=== PATIENT | female | born 1960 | race Caucasian/White ===

== ENCOUNTER 2024-07-19 17:33 | Emergency (ER) | payer MEDICAID, OTHER ==
[~2024-07-19] VITALS: Ht 149.9 cm; Wt 49.3 kg
--- NOTE | 2024-07-19 19:37 | DVH ---
Exam: CT CT AB PEL WO CON-NO ORAL OR IV History: constipation, flank pain Comparison Study: None TECHNIQUE: Multidetector CT of the abdomen and pelvis was performed from lung bases to pubic symphysi s. Imaging was performed without IV contrast. Axial, coronal, and sagittal multiplanar reformats were obtained from the axial data set by the technologist. RADIATION DOSE: DLP 288.15 mGy.cm; CTDI vol 5.72 mGy. Findings: Lungs: The lung bases are clear. Heart: The visualized heart is unremarkable. No cardiomegaly or pericardial effusion. Liver: Unremarkable. Gallbladder: Unremarkable. Spleen: Unremarkable Pancreas: Unremarkable Adrenals: Unremarkable Kidneys: Unremarkable GI tract: Unremarkable. Moderate fecal burden. : Unremarkable. Vasculature: Mild aortoiliac atherosclerosis. Lymphadenopathy: Absent Peritoneum: No ascites Musculoskeletal: Mild multilevel degenerative changes of the thoracolumbar spine. Soft tissues: Unremarkable Impression: 1. No acute abdominopelvic abnormalities. 2. Moderate fecal burden.
[2024-07-19 19:46] LABS: Basophils # (auto) 0.1 10 ^3/uL (0-0.2); Basophils % (auto) 0.7 % (0.0-2.0); Eosinophils # (auto) 0.2 10 ^3/uL (0-0.8); Eosinophils % (auto) 1.6 % (0.0-7.0); Hematocrit 45.3 % (36.0-46.0); Hemoglobin 15.2 g/dL (12.2-16.2); Lymphocytes # (auto) 3.4 10 ^3/uL (0.4-5.4); Lymphocytes % (auto) 36.6 % (10.0-50.0); Mean Corpuscular Hemoglobin 28.3 pg (28.0-32.0); Mean Corpuscular Hgb Conc. 33.6 g/dL (32.0-36.0); Monocytes # (auto) 0.6 10 ^3/uL (0-1.3); Monocytes % (auto) 6.3 % (0.0-12.0); Neutrophils # (auto) 5.1 10 ^3/uL (1.6-8.6); Neutrophils % (auto) 54.8 % (37.0-80.0); Nucleated Red Blood Cells % 0.1 %; Platelet Count (auto) 272 10^3/uL (140-450); Red Blood Cells 5.39 10^6/uL (4.0-5.20); Red Cell Distribution Width 13.7 % (11.8-14.3); White Blood Cell 9.3 10^3/uL (4.4-10.8)
[2024-07-19 20:10] LABS: Lactic Acid w/Reflex 2.5 mmol/L (0.4-2.0)
--- NOTE | 2024-07-19 20:10 | ED.PDOC ---
GI ASSESSMENT HPI Comments HPI: Poor Historian. 63-year-old female presents to emergency department for evaluation of left lower quadrant pain that started two weeks ago constant worse with laying down better with ambulation. Denies any fall or trauma or injury. Patient has been having constipation problems. Last bowel movement was very minimal yesterday. Last bowel movement prior to that was two days prior. Initial Vital Signs: Temp :97.9 BP:152/91 HR:94 RR:20 SpO2: 98 Past Medical History: THYROID, HTN, DM Past Surgical History: CESARIAN, RIGHT OVARY REMOVAL Social History: Denies smoking, ETOH, or drug use. Medications: THYROID MEDICATION , HTN MEDICATION , DM MEDICATION Allergies: NKDA REVIEW OF SYSTEMS: CONSTITUTIONAL: Denies acute: fever, diaphoresis, chills, generalized weakness. HEAD: Denies acute: headache, photophobia Eyes: Denies acute: Double vision, vision loss, eye pain, eye discharge. EARS: Denies acute: tinnitus, hearing loss, ear discharge, ear pain, THROAT: Denies acute: sore throat, swelling, difficulty swallowing , pain with swallowing, change in voice. NECK: Denies acute: neck pain, neck swelling, stiff neck. HEART: Denies acute : chest pain, palpitations, LUNGS: Denies acute: SOB, wheezing, cough, hemoptysis ABDOMEN: Denies acute: Nausea, Vomiting, diarrhea, melena , hematemesis, hematochezia SKIN: Denies acute: rash, redness, lesions, itchiness. EXTREMITIES: Denies acute: calf pain, numbness, tingling, weakness, denies pain in extremity. Denies acute: Low back pain. Neuro: Denies acute: focal neurological deficit, motor or sensory focal neurological deficit, tremors, seizure like activity, confusion, dizziness, change in mental status, loss of bowel or bladder function, cauda equina like symptoms. : Denies acute: dysuria, hematuria, flank pain, increase in urinary frequency. PSYCH: Denies acute: hallucination, suicidal ideation, homicidal ideation. FEMALE: Denies acute: abnormal vaginal bleeding, foul odor, unusual discharge. PHYSICAL EXAM: General: no acute distress, awake and alert. Head: normocephalic, atraumatic. Neck: supple, trachea is midline, no swelling. Throat: Normal phonation. Eyes:, no erythema, no purulent discharge, no proptosis, no icterus. Heart: regular rate, regular rhythm, no significant murmur appreciated. Lungs: no apparent respiratory distress, Able to speak in full sentences. No wheezing, no rhonchi, no crackles. No stridors Clear to auscultation bilaterally. Abdomen: Left lower quadrant tender to palpation, non distended, soft, no guarding, no rebound, + bowel sounds. Neuro: Awake, Alert, oriented to name, self, situation, follows commands GCS=15. Speech is normal. Skin: no petechia, no purpura, no cyanosis, non-pale, not jaundice. Lower extremities: --no - Pitting edema no deformity, no focal swelling, no calf TTP. Makes eye contact. moves all four extremities. Face: no apparent facial droop. No CVA tenderness to percussion bilaterally. Ambulating in the ED independently. Chief Complaint: Constipation Time Seen by MD: 20:00 Reviewed Notes: Nurses Notes, Medications, Allergies Information Source: Patient Mode of Arrival: Ambulatory Timing: Weeks Duration: Since onset Prehospital treatment: None Quality: None Vomitus: None Severity: Mild Recent: None Recent Hx of: None Pain Location: LLQ Modifying Factors: Movement (IMPROVES SYMPTOMS ), Lying still (WORSENS SYMPTOMS) Associated sign and symptoms: Constipation Was a procedure done? Was a procedure done?: No GI differential Dx Differential Diagnosis: Bowel Obstruction, Constipation, Gastroenteritis, Electrolyte Imbalance, Food Poisoning X-Ray, Labs, Meds, VS Vital Signs Date Time Temp Pulse Resp B/P (MAP) Pulse Ox O2 Delivery O2 Flow Rate FiO2 07/19/24 22:36 98.1 95 18 162/102 (122) 95 98.1 07/19/24 18:24 97.9 94 20 152/91 (111) 98 Lab Test 07/19/24 22:57 07/19/24 21:30 07/19/24 19:33 Range/Units Urine Color Yellow Yellow Urine Clarity Turbid H Clear Urine pH 5.5 5.0-9.0 Urine Specific [place] 1.020 1.001-1.035 Urine Protein 2+ H Negative Urine Ketones Trace Negative Urine Blood Negative Negative /uL Urine Nitrite Negative Negative Urine Bilirubin Negative Negative Urine Urobilinogen Normal Negative mg/dL Urine Leukocyte Esterase 1+ Negative /uL Urine RBC 4 0 - 4 /hpf Urine WBC 23 0 - 5 /hpf Urine Squamous Epithelial Cells Few <5 /hpf Urine Bacteria None seen None Seen /hpf Urine Hyaline Casts Many 0 - 2 /lpf Urine Mucus Few None Seen Urine Glucose 1+ H Normal mg/dL Lactic Acid Level 1.7 2.5 *H 0.4-2.0 mmol/L White Blood Count 9.3 4.4-10.8 10^3/uL Red Blood Count 5.39 H 4.0-5.20 10^6/uL Hemoglobin 15.2 12.2-16.2 g/dL Hematocrit 45.3 36.0-46.0 % Mean Corpuscular Volume 84.0 80.0-100.0 fL Mean Corpuscular Hemoglobin 28.3 28.0-32.0 pg Mean Corpuscular Hemoglobin Concent 33.6 32.0-36.0 g/dL Red Cell Distribution Width 13.7 11.8-14.3 % Platelet Count 272 140-450 10^3/uL Mean Platelet Volume 8.3 6.9-10.8 fL Neutrophils (%) (Auto) 54.8 37.0-80.0 % Lymphocytes (%) (Auto) 36.6 10.0-50.0 % Monocytes (%) (Auto) 6.3 0.0-12.0 % Eosinophils (%) (Auto) 1.6 0.0-7.0 % Basophils (%) (Auto) 0.7 0.0-2.0 % Neutrophils # (Auto) 5.1 1.6-8.6 10 ^3/uL Lymphocytes # (Auto) 3.4 0.4-5.4 10 ^3/uL Monocytes # (Auto) 0.6 0-1.3 10 ^3/uL Eosinophils # (Auto) 0.2 0-0.8 10 ^3/uL Basophils # (Auto) 0.1 0-0.2 10 ^3/uL Nucleated Red Blood Cells 0.1 % Sodium Level 135 L 136-145 mmol/L Potassium Level 4.1 3.5-5.1 mmol/L Chloride Level 101 98-107 mmol/L Carbon Dioxide Level 24 20-31 mmol/L Anion Gap 10 5-15 Blood Urea Nitrogen 17 9-23 mg/dL Creatinine 0.83 0.550-1.02 mg/dL Glomerular Filtration Rate Calc 79 >90 mL/min BUN/Creatinine Ratio 20.5 H 10.0-20.0 Serum Glucose 174 H 74-106 mg/dL Calcium Level 10.9 H 8.7-10.4 mg/dL Total Bilirubin 0.3 0.2-1.0 mg/dL Aspartate Amino Transferase (AST) 33 13-40 U/L Alanine Aminotransferase (ALT) 43 H 7-40 U/L Alkaline Phosphatase 138 H 46-116 U/L Troponin I High Sensitivity 6 </=34 ng/L Total Protein 7.4 5.7-8.2 g/dL Albumin 4.5 3.2-4.8 g/dL Lipase 31 12-53 U/L Current Medications Medications (Trade) Dose Ordered Sig/[place] Route Start Time Stop Time Status Last Admin Sodium Chloride 1,000 ml @ 1,000 mls/hr Q1H ONCE IV 07/19/24 20:15 07/19/24 21:14 DC 07/19/24 22:49 Polyethylene Glycol/ Electrolytes (Golytely) 1 kit ONCE ONCE PO 07/19/24 20:15 07/19/24 20:16 DC 07/19/24 23:08 Ondansetron HCl (Zofran) 8 mg ONCE ONCE IV 07/19/24 22:30 07/19/24 22:31 DC 07/19/24 22:49 [place] [id number] Ph: [phone] DIAGNOSTIC IMAGING Diagnostic Imaging Report : [id number] Signed PATIENT: CIERRA AMAYA ACCT: [id number] UNIT: [id number] : 1960 LOC: ER ROOM / BED: / AGE / SEX: 63 / F ADM STATUS: REG ER SERVICE [id number] ORDERING PHYSICIAN: RENEA MCCAIN DO PROCEDURE(s): ABPL - CT AB PEL WO CON-NO ORAL OR IV REASON: constipation, flank pain ORDER NUMBER(s): [id number], ACCESSION NUMBER(s): [id number] Exam: CT CT AB PEL WO CON-NO ORAL OR IV History: constipation, flank pain Comparison Study: None TECHNIQUE: Multidetector CT of the abdomen and pelvis was performed from lung bases to pubic symphysis. Imaging was performed without IV contrast. Axial, coronal, and sagittal multiplanar reformats were obtained from the axial data set by the technologist. RADIATION DOSE: DLP 288.15 mGy.cm; CTDI vol 5.72 mGy. Findings: Lungs: The lung bases are clear. Heart: The visualized heart is unremarkable. No cardiomegaly or pericardial effusion. Liver: Unremarkable. Gallbladder: Unremarkable. Spleen: Unremarkable Pancreas: Unremarkable Adrenals: Unremarkable Kidneys: Unremarkable GI tract: Unremarkable. Moderate fecal burden. : Unremarkable. Vasculature: Mild aortoiliac atherosclerosis. Lymphadenopathy: Absent Peritoneum: No ascites Musculoskeletal: Mild multilevel degenerative changes of the thoracolumbar spine. Soft tissues: Unremarkable Impression: 1. No acute abdominopelvic abnormalities. 2. Moderate fecal burden. ATED BY: VERONICA CHERRY DO DICTATED DATE/TIME: 07/19/241933 SIGNED BY: VERONICA CHERRY DO SIGNED DATE/TIME: 07/19/241933 CC: Time of 1ST Reevaluation: 20:30 Reevaluation 1ST: Unchanged Comments Patient presented with 63-year-old female presents to emergency department for evaluation of left lower quadrant pain that started two weeks ago constant worse with laying down better with ambulation.workup was initiated. patient was found with the above mentioned diagnosis. the following medications were ordered: PEG 3350, NS 1L the following tests were ordered: EKG, CT ABD PEL Patient ED course and VS have been stabilized. Patient has been reassessed in the ED and remained in a stable condition. Pertinent incidental findings were discussed with the patient and/or family. Patient/family voices understanding and is agreeable with plan. Patient has been observed in the ED adequate length of time to insure improvement/stability. Escalation of care considered: Consideration of escalation to observation or admission Patient was DISCHARGED home in a stable condition. All the reports of any imaging studies that were ordered by myself were reviewed by myself. Departure 1 Departure Time of Disposition: 21:21 Impression: Primary Impression: Constipation Additional Impressions: Abdominal pain UTI (urinary tract infection) Disposition: HOME / SELF CARE / HOMELESS Condition: Stable Additional Instructions: Additional discharge instructions: You MUST follow-up with your primary care/family doctor in 1 to 2 days. If you are unable to see your primary care/family doctor, please return to our emergency room for re-assessment and re-evaluation in 1 to 2 days. Return to the emergency room here in our facility or to the nearest ER [facility] if your symptoms change or worsen. CONSULTATIONS: you MUST Follow-up for consultation as soon as possible with: -gastroenterology in 1-2 days. Please call for appointment. Follow up with OB Gyne doctor in 1-2 days. Please call for appointment. You MUST call the consultants office yourself to make an appointment. You may need to arrange that through your insurance and/or your primary/family doctor. If you are unable to see the edi consultant in 1 to 2 days, you must return to our emergency room (or any other ER of your choice) for re-assessment and re-evaluat ion. Adequate fluid hydration. Liquid diet only in the next 72 hours. Finish the GoLYTELY bottle as instructed in the next 24 hours. Increase fiber intake. Below is a copy of your radiological report for follow up: [place] [address] Ph: [phone] DIAGNOSTIC IMAGING Diagnostic Imaging Report : [id number] Signed PATIENT: CIERRA AMAYA ACCT: [id number] UNIT: [id number] : 1960 LOC: ER ROOM / BED: / AGE / SEX: 63 / F ADM STATUS: REG ER SERVICE [id number] ORDERING PHYSICIAN: RENEA MCCAIN DO PROCEDURE(s): ABPL - CT AB PEL WO CON-NO ORAL OR IV REASON: constipation, flank pain ORDER NUMBER(s): [id number], ACCESSION NUMBER(s): [id number] Exam: CT CT AB PEL WO CON-NO ORAL OR IV History: constipation, flank pain Comparison Study: None TECHNIQUE: Multidetector CT of the abdomen and pelvis was performed from lung bases to pubic symphysis. Imaging was performed without IV contrast. Axial, coronal, and sagittal multiplanar reformats were obtained from the axial data set by the technologist. RADIATION DOSE: DLP 288.15 mGy.cm; CTDI vol 5.72 mGy. Findings: Lungs: The lung bases are clear. Heart: The visualized heart is unremarkable. No cardiomegaly or pericardial e ffusion. Liver: Unremarkable. Gallbladder: Unremarkable. Spleen: Unremarkable Pancreas: Unremarkable Adrenals: Unremarkable Kidneys: Unremarkable GI tract: Unremarkable. Moderate fecal burden. : Unremarkable. Vasculature: Mild aortoiliac atherosclerosis. Lymphadenopathy: Absent Peritoneum: No ascites Musculoskeletal: Mild multilevel degenerative changes of the thoracolumbar spine. Soft tissues: Unremarkable Impression: 1. No acute abdominopelvic abnormalities. 2. Moderate fecal burden. ATED BY: VERONICA CHERRY DO DICTATED DATE/TIME: 07/19/241933 SIGNED BY: VERONICA CHERRY DO SIGNED DATE/TIME: 07/19/241933 CC: e-Prescriptions Ondansetron Odt 4MG Tab (ZOFRAN PO) 4 Mg Tb 4 MG PO Q8HPRN PRN for 3 Days, #9 TAB ODT TAB-DISSOLVE IN MOUTH, THEN SWALLOW Prov: RENEA MCCAIN DO 07/19/24 Nitrofurantoin Monohydrate Mac (Macrobid) 100 Mg Cap 100 MG PO BID for 7 Days, #14 CAP Prov: RENEA MCCAIN DO 07/19/24 Discharged With: Self Critical Care Note Critical Care Time?: No Stability Stability form required: No I personally scribed for RENEA MCCAIN DO ([email or web address]) on 07/19/24 at 20:10. Electronically submitted by Trupti Guerrero ([email or web address]). I personally scribed for RENEA MCCAIN DO ([email or web address]) on 07/19/24 at 20:12. Electronically submitted by Trupti Guerrero ([email or web address]). I personally scribed for RENEA MCCAIN DO ([email or web address]) on 07/19/24 at 20:17. Electronically submitted by Trupti Guerrero ([email or web address]). I personally scribed for RENEA MCCAIN DO ([email or web address]) on 07/19/24 at 20:18. Electronically submitted by Trupti Guerrero ([email or web address]). I personally scribed for RENEA MCCAIN DO ([email or web address]) on 07/19/24 at 20:46. Electronically submitted by Trupti Guerrero ([email or web address]). I personally scribed for RENEA MCCAIN DO ([email or web address]) on 07/19/24 at 21:54. Electronically submitted by Trupti Guerrero ([email or web address]). RENEA MCCAIN DO Jul 19, 2024 20:10
[2024-07-19 20:14] LABS: Carbon Dioxide 24 mmol/L (20-31); Chloride 101 mmol/L (98-107); Potassium 4.1 mmol/L (3.5-5.1)
[2024-07-19 20:15] LABS: Albumin 4.5 g/dL (3.2-4.8); Anion Gap 10 (5-15); Aspartate Aminotransferase 33 U/L (13-40); BUN/Creatinine Ratio 20.5 (10.0-20.0); Blood Urea Nitrogen 17 mg/dL (9-23); Lipase 31 U/L (12-53); Total Protein 7.4 g/dL (5.7-8.2)
[2024-07-19 20:16] LABS: Alanine Aminotransferase 43 U/L (7-40); Alkaline Phosphatase 138 U/L (46-116); Bilirubin, Total 0.3 mg/dL (0.2-1.0); Calcium 10.9 mg/dL (8.7-10.4); Glucose 174 mg/dL (74-106); Sodium 135 mmol/L (136-145)
[2024-07-19 22:36] VITALS: BP 162/102; PULSE 95; RESP 18; TEMP 98.1; O2SAT 95
[2024-07-19] MEDS: SODIUM CHLORIDE 0.9% 1,000 ML IV ONE (22:49)
[2024-07-19] MEDS: ONDANSETRON HCL 4 MG/2 ML VIAL IV ONE (22:49)
[2024-07-19] MEDS: GOLYTELY 4L KIT PO ONE (23:08)
[2024-07-19 23:09] LABS: Urine Bacteria None Seen /hpf (None Seen)
[2024-07-19 23:22] LABS: Urine Blood Negative /uL (Negative); Urine Clarity Turbid (Clear); Urine Color Yellow (Yellow); Urine Hyaline Cast MANY /lpf (0 - 2); Urine Mucus FEW (None Seen); Urine Protein, UAD 2+ (Negative); Urine Squamous Epithelial Cell FEW /hpf (<5); Urine Urobilinogen Normal (Negative); Urine WBC 23 /hpf (0 - 5); Urine pH 5.5 (5.0-9.0)
[2024-07-19] MEDS ORDERED: ZOFR4T PO (23:28)
[2024-07-19] MEDS ORDERED: NITR-87 PO (23:28)
== END 2024-07-19 23:59 | disposition home or self-care (01) ==
LOC: ER 17:33
DX: K59.00 Constipation, unspecified (principal); N39.0 Urinary tract infection, site not specified; R10.32 Left lower quadrant pain; I10 Essential (primary) hypertension; E11.9 Type 2 diabetes mellitus without complications; Z90.721 Acquired absence of ovaries, unilateral; Z79.899 Other long term (current) drug therapy
CPT/HCPCS: 36415; 74176; 80053; 81001; 83605; 83690; 84484; 85025; 96361; 96374; 99285; J2405; J7030

== ENCOUNTER 2024-11-02 09:55 | Inpatient (IN) | payer MEDICAID ==
[~2024-11-02] VITALS: Ht 149.9 cm; Wt 52.4 kg
[~2024-11-02 09:55] MED LIST: NITR-87 PO; ZOFR4T PO
--- NOTE | 2024-11-02 10:28 | ECG ---
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
--- NOTE | 2024-11-02 10:32 | ED.PDOC ---
HPI Comments 64 year old female presents to the ED with chief complaint of back pain radiating to her chest. Patient reports that she has been experiencing thoracic back pain with associated left sided pressure-like chest pain, LLQ abdominal pain, SOB, and bilateral hand numbness for the past 5 days. Patient relays that the pain in her back is worse when pushed on. Patient notes she had a previous left arm thrombectomy performed in [place] in March 2024. Patient denies any weakness, headache, dizziness, N/V, syncope, blurred vision, or left arm pain. Chief Complaint: Chest Pain Time Seen by MD: 10:27 Reviewed Notes: Nurses Notes, Medications, Allergies Allergies: Coded Allergies: NO KNOWN ALLERGIES (Unverified , 11/02/24) Home Meds Active Scripts Ondansetron Odt 4MG Tab (ZOFRAN PO) 4 Mg Tb, 4 MG PO Q8HPRN PRN for 3 Days, #9 TAB ODT TAB-DISSOLVE IN MOUTH, THEN SWALLOW Prov:RENEA MCCAIN DO 07/19/24 Nitrofurantoin Monohydrate Mac (Macrobid) 100 Mg Cap, 100 MG PO BID for 7 Days, #14 CAP Prov:RENEA MCCAIN DO 07/19/24 Information Source: Patient Mode of Arrival: Wheelchair Severity: Moderate Timing: Hours Duration: Since onset Prehospital treatment: None Location: Chest (L) Radiation: Back Quality: Sharp Onset: At Rest Cardiac Risk Factors: Hyperlipidemia, HTN PE Risk Factors: None History of: None Past Medical History PAST MEDICAL HISTORY: High Lipids, HTN, Thyroid Surgical History (Other): Left arm thrombectomy [employer] History: Denies all [employer] Hx Family History Family History: Reviewed,noncontributory to illness Social History Smoker: Non-Smoker Alcohol: Denies ETOH Use Drugs: Denies Drug Use Lives In: Home Constitutional: denies: chills, diaphoresis, fatigue, fever, malaise, sweats, weakness, others EENTM: denies: blurred vision, double vision, ear bleeding, ear discharge, ear drainage, ear pain, ear ringing, eye pain, eye redness, hearing loss, mouth pain, mouth swelling, nasal discharge, nose bleeding, nose congestion, nose pain, photophobia, tearing, throat pain, throat swelling, voice changes, others Respiratory: reports: shortness of breath; denies: cough, hemoptysis, orthopnea, SOB at rest, SOB with excertion, stridor, wheezing, others Cardiovascular: reports: chest pain; denies: dizzy spells, diaphoresis, Dyspnea on exertion, edema, irregular heart beat, left arm pain, lightheadedness, palpitations, PND, syncope, others Gastrointestinal: reports: abdominal pain; denies: abdomen distended, blood streaked bowels, constipated, diarrhea, dysphagia, difficulty swallowing, hematemesis, melena, nausea, poor appetite, poor fluid intake, rectal bleeding, rectal pain, vomiting, others Genitourinary: denies: abnormal vagina bleeding, burning, dyspareunia, dysuria, flank pain, frequency, hematuria, incontinence, pain, , vagina discharge, urgency, others Neurological: reports: others (Bilateral hand numbness); denies: dizziness, fainting, headache, left sided numbness, left sided weakness, numbness, paresthesia, pre-existing deficit, right sided numbness, right sided weakness, seizure, speech problems, tingling, tremors, weakness Musculoskeletal: reports: back pain; denies: gout, joint pain, joint swelling, muscle pain, muscle stiffness, neck pain, others Integumetry: denies: bruises, change in color, change in hair/nails, dryness, laceration, lesions, lumps, rash, wounds, others Allergic/Immunocompromised: denies: Difficulty Healing, Frequent Infections, Hives, Itching, others Hematologic/Lymphatic: denies: anemia, blood clots, easy bleeding, easy bruising, swollen glands, others Endocrine: denies: excessive hunger, excessive sweating, excessive thirst, excessive urination, flushing, intolerance to cold, intolerance to heat, unexplained weight gain, unexplained weight loss, others Psychiatric: denies: anxiety, bipolar disorder, depression, hopeless, panic disorder, schizophrenia, sleepless, suicidal, others All Other Systems: Reviewed and Negative Physical Exam General Appearance: Mild Distress HEENT: Other (Pupils and face symmetric, moist mucous membranes) Neck: Full Range of Motion, Non-Tender, Normal Inspection, Supple Respiratory: Chest Non-Tender, Lungs Clear, No Accessory Muscle Use, Normal Breath Sounds, Other (Mild tachypnea) Cardiovascular: No Edema, No JVD, Tachycardia Breast Exam: Deferred Gastrointestinal: Non Tender, Soft Genitalia: Deferred Pelvic: Deferred Rectal: Deferred Extremities: Normal inspection, Normal range of motion, Non-tender, No pedal edema Musculoskeletal : Extremity Location: Back (Diffuse thoracic back tenderness to light palpation. No edema, discoloration or crepitus noted) Apperance: Normal Neurologic: Alert (Oriented x4), Other (Anxious. Ambulatory without difficulty.) Cerebellar Function: NOT DONE Reflexes: NOT DONE Skin: Dry, Normal Color, Warm Lymphatic: NOT DONE EKG EKG : Pulse Rate (adult): 89 Comments Sinus rhythm, rate 89, normal intervals, normal axis, normal QRS, no ST/T changes. Was a procedure done? Was a procedure done?: No CP Differential Dx Differential Diagnosis: Angina, Anxiety / Panic Attack, Heart Failure, NH, Pulmonary Embolus Differential Diagnosis: HTN Essential, HTN Accelerated Differential Diagnosis: Aortic dissection, Chest Wall Pain, Costochondritis, Gastritis, Pericarditis, Pneumonia Comment Musculoskeletal back pain, disc disease, neuropathic pain, among others X-Ray, Labs, Meds, VS Vital Signs Date Time Temp Pulse Resp B/P (MAP) Pulse Ox O2 Delivery O2 Flow Rate FiO2 11/02/24 11:23 86 22 144/80 11/02/24 11:00 87 20 100 Room Air* 0 21 11/02/24 10:53 87 20 100 Room Air 11/02/24 10:53 98.8 87 20 144/80 (101) 100 98.8 11/02/24 10:53 87 20 144/80 11/02/24 10:32 89 11/02/24 10:20 89 11/02/24 10:15 98.8 101 22 157/94 (115) 100 98.8 Lab Test 11/02/24 11:42 11/02/24 11:00 11/02/24 10:38 Range/Units Troponin I High Sensitivity 4 4 </=34 ng/L Urine Color Yellow Yellow Urine Clarity Clear Clear Urine pH 5.5 5.0-9.0 Urine Specific [place] 1.030 1.001-1.035 Urine Protein Trace H Negative Urine Ketones Trace Negative Urine Blood Negative Negative /uL Urine Nitrite Negative Negative Urine Bilirubin Negative Negative Urine Urobilinogen 2 H Negative mg/dL Urine Leukocyte Esterase 1+ Negative /uL Urine RBC 1 0 - 4 /hpf Urine Microscopic WBC 2 0-5 /HPF Urine Squamous Epithelial Cells Few <5 /hpf Urine Bacteria None seen None Seen /hpf Urine Mucus Few None Seen Urine Glucose 2+ H Normal mg/dL White Blood Count 7.6 4.4-10.8 10^3/uL Red Blood Count 4.67 4.0-5.20 10^6/uL Hemoglobin 14.0 12.2-16.2 g/dL Hematocrit 40.4 36.0-46.0 % Mean Corpuscular Volume 86.6 80.0-100.0 fL Mean Corpuscular Hemoglobin 30.1 28.0-32.0 pg Mean Corpuscular Hemoglobin Concent 34.7 32.0-36.0 g/dL Red Cell Distribution Width 13.5 11.8-14.3 % Platelet Count 304 140-450 10^3/uL Mean Platelet Volume 7.9 6.9-10.8 fL Neutrophils (%) (Auto) 56.4 37.0-80.0 % Lymphocytes (%) (Auto) 35.5 10.0-50.0 % Monocytes (%) (Auto) 6.4 0.0-12.0 % Eosinophils (%) (Auto) 0.7 0.0-7.0 % Basophils (%) (Auto) 1.0 0.0-2.0 % Neutrophils # (Auto) 4.3 1.6-8.6 10 ^3/uL Lymphocytes # (Auto) 2.7 0.4-5.4 10 ^3/uL Monocytes # (Auto) 0.5 0-1.3 10 ^3/uL Eosinophils # (Auto) 0.1 0-0.8 10 ^3/uL Basophils # (Auto) 0.1 0-0.2 10 ^3/uL Nucleated Red Blood Cells 0.0 % Prothrombin Time 10.6 9.3-11.8 sec Prothrombin Time INR 1.00 0.9-1.15 Activated Partial Thromboplast Time 24.0 L 24.5-34.5 SEC D-Dimer, Quantitative 0.38 0.0-0.49 mg/L FEU Sodium Level 134 L 136-145 mmol/L Potassium Level 3.8 3.5-5.1 mmol/L Chloride Level 101 98-107 mmol/L Carbon Dioxide Level 20 20-31 mmol/L Anion Gap 13 5-15 Blood Urea Nitrogen 16 9-23 mg/dL Creatinine 0.68 0.550-1.02 mg/dL Glomerular Filtration Rate Calc 97 >90 mL/min BUN/Creatinine Ratio 23.5 H 10.0-20.0 Serum Glucose 248 H 74-106 mg/dL Calcium Level 10.4 8.7-10.4 mg/dL Total Bilirubin 0.4 0.2-1.0 mg/dL Aspartate Amino Transferase (AST) 34 13-40 U/L Alanine Aminotransferase (ALT) 53 H 7-40 U/L Alkaline Phosphatase 120 H 46-116 U/L B-Type Natriuretic Peptide 38.19 0-100 pg/mL Total Protein 7.7 5.7-8.2 g/dL Albumin 4.7 3.2-4.8 g/dL Lipase 30 12-53 U/L Current Medications Medications (Trade) Dose Ordered Sig/[place] Route Start Time Stop Time Status Last Admin Morphine Sulfate 2 mg ONCE ONCE IV 11/02/24 10:30 11/02/24 10:31 DC 11/02/24 10:53 Ondansetron HCl (Zofran) 4 mg ONCE ONCE IV 11/02/24 10:30 11/02/24 10:31 DC 11/02/24 10:52 Lorazepam (Ativan Inj) 0.5 mg ONCE ONCE IV 11/02/24 10:30 11/02/24 10:31 DC 11/02/24 11:44 Aspirin 325 mg ONCE ONCE PO 11/02/24 14:15 11/02/24 14:42 DC 11/02/24 17:08 CT Angio Chest: FINDINGS: LIMITATIONS: Suboptimal opacification of the pulmonary arteries. PULMONARY ARTERIES: No pulmonary embolism is identified. Some of the distal pulmonary arteries cannot be evaluated due to suboptimal opacification. AORTA: No acute findings. No thoracic aortic aneurysm. LUNGS AND PLEURAL SPACES: Suggestion of pulmonary hypertension. No mass. No consolidation. No significant effusion. No pneumothorax. HEART: Unremarkable. No cardiomegaly. No significant pericardial effusion. No evidence of RV dysfunction. BONES/JOINTS: No acute fracture. No dislocation. SOFT TISSUES: Unremarkable. LYMPH NODES: Unremarkable. No enlarged lymph nodes. OTHER FINDINGS: . . IMPRESSION: No pulmonary embolism is identified. Some of the distal pulmonary arteries cannot be evaluated due to suboptimal opacification. X-Ray, Labs, Meds, VS Comment 64-year-old female with a history of hypertension, dyslipidemia, left upper extremity DVT status post thrombectomy and thyroid disease presenting complaining of chest pain, shortness of breath and thoracic back pain Vitals remarkable for heart rate 101, respiratory rate 22, BP 157/94 Exam remarkable for tachycardia, diffuse thoracic back tenderness Rhythm strip independently interpreted by me: Sinus rhythm, rate 89, no ectopy. CT angio chest: IMPRESSION: No pulmonary embolism is identified. Some of the distal pulmonary arteries cannot be evaluated due to suboptimal opacification. CBC normal, CMP remarkable for sodium 134, glucose 248, UA abnormal but not definitely consistent with UTI Patient treated with the following in the ED: Ativan 0.5 mg IV, morphine 2 mg IV, Zofran 4 mg IV. On re-evaluation. Patient is less anxious and states back pain has somewhat improved. She is still having chest pain. Aspirin 325 mg p.o. and Nitro-Bid 1/2 inch to chest wall were subsequently ordered. Plan is to admit the patient for ongoing serial troponins and Cardiology evaluation. Images Reviewed?: Images reviewed and evaluated by me Time of 1ST Reevaluation: 14:14 Reevaluation 1ST: Improved Patient Education/Counseling: Diagnosis, Treatment Family Education/Counseling: No Family Present Additional Information -Reviewed patient's previous visit(s): 07/19/24 for constipation - The following tests were ordered, and results were reviewed by me: CBC, CMP, D-Dimer, Lipase, PTPTT, UA, BNP, Troponin, EKG, CT Angio Chest - Additional information was gathered from interviewing the following independent Historian: None - I reviewed and agreed with the following test results read by other provider: CT Angio Chest - I discussed treatments and results with medical personnel and: patient Comprehensive systems review obtained and negative except for what is stated in the HPI. Departure 1 Departure Time of Disposition: 14:14 Impression: Primary Impression: Chest pain with high risk for cardiac etiology Additional Impression: Thoracic back pain Qualified Codes: M54.6 - Pain in thoracic spine Disposition: 09 ADMITTED INPATIENT Admit to: [facility] Condition: Guarded Critical Care Note Critical Care Time?: No Stability Stability form required: No Heart Score Heart Score: Heart Score Response (Comments) Value History Highly Suspicious 2 EKG Normal 0 Age 45-64 1 Risk Factors 1 or 2 risk factors 1 Troponin Normal limit 0 Total 4 I personally scribed for TOVA VALENCIA MD (PAVAN) on 11/02/24 at 10:32. Electronically submitted by Joao Magurie ([email or web address]). I personally scribed for TOVA VALENCIA MD (PAVAN) on 11/02/24 at 10:49. Electronically submitted by Joao Maguire ([email or web address]). I personally scribed for TOVA VALENCIA MD (PAVAN) on 11/02/24 at 13:16. Electronically submitted by Joao Maguire ([email or web address]). TOVA VALENCIA MD Nov 02, 2024 10:32
[2024-11-02] MEDS: ONDANSETRON HCL 4 MG/2 ML VIAL IV ONE (10:52)
[2024-11-02] MEDS: MORPHINE SULFATE INJ 2 MG/ml SYRG IV ONE (10:53)
[2024-11-02 10:59] LABS: Basophils # (auto) 0.1 10 ^3/uL (0-0.2); Eosinophils # (auto) 0.1 10 ^3/uL (0-0.8); Eosinophils % (auto) 0.7 % (0.0-7.0); Hematocrit 40.4 % (36.0-46.0); Lymphocytes # (auto) 2.7 10 ^3/uL (0.4-5.4); Lymphocytes % (auto) 35.5 % (10.0-50.0); Mean Corpuscular Hemoglobin 30.1 pg (28.0-32.0); Mean Corpuscular Hgb Conc. 34.7 g/dL (32.0-36.0); Mean Corpuscular Volume 86.6 fL (80.0-100.0); Monocytes # (auto) 0.5 10 ^3/uL (0-1.3); Monocytes % (auto) 6.4 % (0.0-12.0); Neutrophils # (auto) 4.3 10 ^3/uL (1.6-8.6); Neutrophils % (auto) 56.4 % (37.0-80.0); Platelet Count (auto) 304 10^3/uL (140-450); Red Blood Cells 4.67 10^6/uL (4.0-5.20); Red Cell Distribution Width 13.5 % (11.8-14.3); White Blood Cell 7.6 10^3/uL (4.4-10.8)
[2024-11-02 11:00] VITALS: PULSE 87; RESP 20; O2SAT 100
[2024-11-02 11:13] LABS: Albumin 4.7 g/dL (3.2-4.8); Anion Gap 13 (5-15); Aspartate Aminotransferase 34 U/L (13-40); BUN/Creatinine Ratio 23.5 (10.0-20.0); Bilirubin, Total 0.4 mg/dL (0.2-1.0); Blood Urea Nitrogen 16 mg/dL (9-23); Calcium 10.4 mg/dL (8.7-10.4); Chloride 101 mmol/L (98-107); Potassium 3.8 mmol/L (3.5-5.1); Prothrombin Time 10.6 sec (9.3-11.8); Total Protein 7.7 g/dL (5.7-8.2)
[2024-11-02 11:23] LABS: Alanine Aminotransferase 53 U/L (7-40); Alkaline Phosphatase 120 U/L (46-116); Carbon Dioxide 20 mmol/L (20-31); Glucose 248 mg/dL (74-106); Sodium 134 mmol/L (136-145)
[2024-11-02 11:36] LABS: Lipase 30 U/L (12-53)
[2024-11-02] MEDS: LORazepam 2MG/ML-1ML VIAL IV ONE (11:44)
[2024-11-02 11:45] LABS: Urine Bacteria None Seen /hpf (None Seen)
[2024-11-02 12:04] LABS: Urine Blood Negative /uL (Negative); Urine Clarity Clear (Clear); Urine Color Yellow (Yellow); Urine Mucus FEW (None Seen); Urine Protein, UAD TRACE (Negative); Urine Squamous Epithelial Cell FEW /hpf (<5); Urine Urobilinogen 2 mg/dL (Negative); Urine WBC 2 /HPF (0-5); Urine pH 5.5 (5.0-9.0)
[2024-11-02] MEDS: IOHEXOL 350 MG/ML 100ML IJ ONE (12:21)
--- NOTE | 2024-11-02 13:11 | DVH ---
EXAM: CT Angiography Chest With Intravenous Contrast CLINICAL INDICATION: back pain, CP, s/p LUE thrombectomy TECHNIQUE: Axial computed tomographic angiography images of the chest with intravenous contrast. is CT exam was performed using one or more of the following dose reduction techniques: automated exp osure control, adjustment of the mA and/or kV according to patient size, and/or use of iterative fox nstruction technique. MIP reconstructed images were created and reviewed. CONTRAST: COMPARISON: None FINDINGS: LIMITATIONS: Suboptimal opacification of the pulmonary arteries. PULMONARY ARTERIES: No pulmonary embolism is identified. Some of the distal pulmonary arteries can not be evaluated due to suboptimal opacification. AORTA: No acute findings. No thoracic aortic aneurysm. LUNGS AND PLEURAL SPACES: Suggestion of pulmonary hypertension. No mass. No consolidation. No si gnificant effusion. No pneumothorax. HEART: Unremarkable. No cardiomegaly. No significant pericardial effusion. No evidence of RV dys function. BONES/JOINTS: No acute fracture. No dislocation. SOFT TISSUES: Unremarkable. LYMPH NODES: Unremarkable. No enlarged lymph nodes. OTHER FINDINGS: . . IMPRESSION: No pulmonary embolism is identified. Some of the distal pulmonary arteries cannot be evaluated due to suboptimal opacification.
[2024-11-02] MEDS: NITROGLYCERIN 2% OINT 1GM PKG TD ONE (14:15)
--- NOTE | 2024-11-02 15:21 | DVHHP2 ---
Admitting Diagnosis: Admission Date: 11/02/2024 Chest pain History of Present Illness Patient is a 64-year-old female who presents to the emergency department with a CC of back pain that radiates to her chest. Patient has been reporting thoracic back pain with left-sided pressure like chest pain, shortness of breath, bilateral hand numbness for 5 days, and lower left quadrant abdominal pain. Patient states that pain in her back is worse when pushed on. Patient reports in March 2024 she had a left arm thrombectomy in [place]. Patient denies any other symptoms at this time. While in the emergency department the patient was evaluated by the provider, As per provider: Labs, vital signs, and imagining monitored. Patient will be admitted for further evaluation and treatment. I discussed admission with the patient/family and is in agreement to treatment plan. Allergies: Coded Allergies: NO KNOWN ALLERGIES (Unverified , 11/02/24) Home Meds Active Scripts Ondansetron Odt 4MG Tab (ZOFRAN PO) 4 Mg Tb, 4 MG PO Q8HPRN PRN for 3 Days, #9 TAB ODT TAB-DISSOLVE IN MOUTH, THEN SWALLOW Prov:RENEA MCCAIN DO 07/19/24 Nitrofurantoin Monohydrate Mac (Macrobid) 100 Mg Cap, 100 MG PO BID for 7 Days, #14 CAP Prov:RENEA MCCAIN DO 07/19/24 Reported Medications Metformin Hydrochloride (Glumetza) 1,000 Mg Tab 11/03/24 Aspirin (Aspirin Low Dose) 81 Mg Tab, 1 TAB PO DAILY 11/03/24 Atorvastatin Calcium (ATORVASTATIN CALCIUM) 40 Mg Tab, 1 TAB PO DAILY 11/03/24 Benazepril Hcl (Benazepril Hcl) 10 Mg Tab, 1 TAB PO DAILY 11/03/24 Amlodipine Besylate (Amlodipine Besylate) 10 Mg Tab, 1 TAB PO DAILY 11/03/24 Levothyroxine Sodium (Levothyroxine Sodium) 200 Mcg Tab, 1 TAB PO DAILY 11/03/24 Current Medications Current Medications Medications (Trade) Dose Ordered Sig/[place] Route PRN Reason Start Time Stop Time Status Last Admin Ondansetron HCl (Zofran) 4 mg Q4HP PRN IV NAUSEA / VOMITING 11/02/24 15:30 11/03/24 08:35 DC 11/02/24 21:01 Docusate Sodium (Colace Capsule) 100 mg BIDPRN PRN PO FOR CONSTIPATION 11/02/24 15:30 Enoxaparin Sodium (Lovenox) 40 mg DAILY SC 11/03/24 10:00 11/03/24 09:16 Nitroglycerin (Ntrostat Sublingual) 0.4 mg Q5MIN PRN SL FOR CHEST PAIN 11/02/24 15:30 11/02/24 17:10 Nitroglycerin (Ntrostat Sublingual) 0.4 mg Q5MINP PRN SL FOR CHEST PAIN 11/02/24 15:30 11/02/24 15:30 DC Morphine Sulfate 2 mg Q30M PRN IV FOR CHEST PAIN 11/02/24 15:30 Diagnostic Test (Pha) (Accu-Chek Comfort Curve T) 1 strip Q6HR 11/02/24 18:00 11/03/24 12:46 Insulin Human Regular (InsuLIN R) Q6HR SC 11/02/24 18:00 11/03/24 12:46 Dextrose 50 ml UD PRN IV Blood Sugar LESS THAN 60 11/02/24 15:30 Hydralazine HCl (Apresoline Injection) 10 mg Q6HP PRN IV SBP>150 11/02/24 21:15 Diphenhydramine HCl (Benadryl Capsule) 25 mg Q6HP PRN PO FOR ITCHING 11/02/24 21:30 11/03/24 03:51 Amlodipine Besylate (Norvasc Tablet) 10 mg DAILY PO 11/03/24 10:00 11/03/24 09:38 Benazepril HCl (Lotensin Tablet) 10 mg DAILY PO 11/03/24 10:00 11/03/24 06:35 DC Metoprolol Tartrate (Lopressor Tablet) 25 mg BID PO 11/03/24 10:00 11/03/24 09:37 Atorvastatin Calcium (Lipitor) 40 mg HS PO 11/03/24 22:00 Aspirin (Ecotrin Enteric Coated Tablet) 81 mg DAILY PO 11/03/24 10:00 11/03/24 09:36 Benazepril HCl (Lotensin Tablet) 10 mg DAILY PO 11/03/24 10:00 11/03/24 09:37 Patient Own Medication 1 tab DAILY PO 11/03/24 10:00 11/03/24 06:48 DC Patient Own Medication 1 tab DAILY PO 11/03/24 10:00 11/03/24 06:48 DC Levothyroxine Sodium (Synthroid Tablet) 200 mcg DAILY@0730 PO 11/03/24 07:30 11/03/24 07:57 DC Levothyroxine Sodium (Synthroid Tablet) 150 mcg DAILY@0730 PO 11/03/24 08:00 11/03/24 13:40 Ondansetron HCl (Zofran) 4 mg Q4HPRN PRN IV NAUSEA / VOMITING 11/03/24 08:00 Morphine Sulfate 2 mg Q4HPRN PRN IV SEVERE PAIN (7-10 PAIN SCALE) 11/03/24 08:15 Acetaminophen/ Hydrocodone Bitart ([place] 5/325MG Tab) 1 tab Q6HPRN PRN PO MODERATE PAIN (4-6 PAIN SCALE) 11/03/24 08:15 Review of Systems Constitutional: denies chills, denies fever, denies malaise Eyes: denies eye pain, denies vision change ENT: denies ear pain, denies headache, denies nasal congestion, denies painful swallowing, denies voice change Cardiovascular: denies chest pain, denies edema, denies orthopnea, denies palpitations, denies paroxysmal nocturnal dyspnea Respiratory: denies cough, denies shortness of breath Gastrointestinal: denies constipation, denies diarrhea, denies nausea, denies vomiting Genitourinary: denies dysuria, denies frequent urination, denies urethral discharge Musculoskeletal: denies back pain, denies joint pain, denies muscle pain Skin: denies bruising, denies itching, denies rash Neurological: denies focal weakness, denies headache, denies sensory changes Psychiatric: denies anxiety, denies depression Endocrine: denies polydipsia, denies polyuria Hematologic/Lymphatic: denies easy bleeding, denies easy bruising, denies enlarged lymph nodes Allergic/Immunologic: denies allergy, denies hives Vital Signs Vital Signs Date Time Temp Pulse Resp B/P (MAP) Pulse Ox O2 Delivery O2 Flow Rate FiO2 11/03/24 10:37 63 115/63 11/03/24 09:16 20 11/03/24 05:00 97.4 96 97.4 11/02/24 11:00 Room Air* 0 21 Physical Exam General Appearance: alert, no distress HEENT: EOMI, PERRLA, normal external inspect of ears, no icterus, no nasal drainage Neck: no carotid bruit, no jugular venous distention (JVD), no lymphadenopathy Chest: normal thorax Respiratory: clear to auscultation, normal air movement Cardiovascular: regular rate and rhythm, no diastolic murmur, no jugular venous distention (JVD), no rub, no systolic murmur Abdominal: soft, no hepatomegaly, no mass, no splenomegaly, no tenderness Genitourinary: grossly normal external Musculoskeletal: no joint tenderness, no swelling Extremities: normal pulses, no calf tenderness, no clubbing, no cyanosis, no edema Skin: no bruising, no jaundice, no rash Neurological: alert, No focal deficit Results Labs Test 11/03/24 12:39 11/03/24 10:50 11/03/24 06:31 11/02/24 11:00 Range/Units POC Glucose 171 H 70-106 mg/dl Troponin I High Sensitivity 4 </=34 ng/L White Blood Count 6.4 4.4-10.8 10^3/uL Red Blood Count 4.67 4.0-5.20 10^6/uL Hemoglobin 13.8 12.2-16.2 g/dL Hematocrit 40.5 36.0-46.0 % Mean Corpuscular Volume 86.6 80.0-100.0 fL Mean Corpuscular Hemoglobin 29.6 28.0-32.0 pg Mean Corpuscular Hemoglobin Concent 34.2 32.0-36.0 g/dL Red Cell Distribution Width 13.4 11.8-14.3 % Platelet Count 272 140-450 10^3/uL Mean Platelet Volume 8.0 6.9-10.8 fL Neutrophils (%) (Auto) 58.0 37.0-80.0 % Lymphocytes (%) (Auto) 31.6 10.0-50.0 % Monocytes (%) (Auto) 7.6 0.0-12.0 % Eosinophils (%) (Auto) 2.0 0.0-7.0 % Basophils (%) (Auto) 0.8 0.0-2.0 % Neutrophils # (Auto) 3.7 1.6-8.6 10 ^3/uL Lymphocytes # (Auto) 2.0 0.4-5.4 10 ^3/uL Monocytes # (Auto) 0.5 0-1.3 10 ^3/uL Eosinophils # (Auto) 0.1 0-0.8 10 ^3/uL Basophils # (Auto) 0.1 0-0.2 10 ^3/uL Nucleated Red Blood Cells 0.1 % Sodium Level 136 136-145 mmol/L Potassium Level 4.2 3.5-5.1 mmol/L Chloride Level 102 98-107 mmol/L Carbon Dioxide Level 26 20-31 mmol/L Anion Gap 8 5-15 Blood Urea Nitrogen 11 9-23 mg/dL Creatinine 0.56 0.550-1.02 mg/dL Glomerular Filtration Rate Calc 102 >90 mL/min BUN/Creatinine Ratio 19.6 10.0-20.0 Serum Glucose 139 H 74-106 mg/dL Hemoglobin A1c 7.8 H <5.7 % A1C Calcium Level 10.0 8.7-10.4 mg/dL Total Bilirubin 0.5 0.2-1.0 mg/dL Aspartate Amino Transferase (AST) 36 13-40 U/L Alanine Aminotransferase (ALT) 50 H 7-40 U/L Alkaline Phosphatase 92 46-116 U/L B-Type Natriuretic Peptide 26.99 0-100 pg/mL Total Protein 7.2 5.7-8.2 g/dL Albumin 4.5 3.2-4.8 g/dL Triglycerides Level 100 < 150 mg/dL Cholesterol Level 172 < 200 mg/dL LDL Cholesterol 101 H < 100 mg/dL HDL Cholesterol 57 40-59 mg/dL Lipase 25 12-53 U/L Thyroid Stimulating Hormone (TSH) 0.09 L 0.55-4.78 uIU/mL Urine Color Yellow Yellow Urine Clarity Clear Clear Urine pH 5.5 5.0-9.0 Urine Specific [place] 1.030 1.001-1.035 Urine Protein Trace H Negative Urine Ketones Trace Negative Urine Blood Negative Negative /uL Urine Nitrite Negative Negative Urine Bilirubin Negative Negative Urine Urobilinogen 2 H Negative mg/dL Urine Leukocyte Esterase 1+ Negative /uL Urine RBC 1 0 - 4 /hpf Urine Microscopic WBC 2 0-5 /HPF Urine Squamous Epithelial Cells Few <5 /hpf Urine Bacteria None seen None Seen /hpf Urine Mucus Few None Seen Urine Glucose 2+ H Normal mg/dL Test 11/02/24 10:38 Range/Units Prothrombin Time 10.6 9.3-11.8 sec Prothrombin Time INR 1.00 0.9-1.15 Activated Partial Thromboplast Time 24.0 L 24.5-34.5 SEC D-Dimer, Quantitative 0.38 0.0-0.49 mg/L FEU Plan 1. Unstable Angina Monitor, cardiology consult 2. 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 Hypothyroidism Monitor, restart thyroid medication Plan discussed with: Patient, Other DAYA SAMUELS NP Nov 02, 2024 15:21
[2024-11-02] MEDS ORDERED: DEXTROSE (50%) 50ML SYRG IV PRN (15:30)
[2024-11-02] MEDS ORDERED: MORPHINE SULFATE INJ 2 MG/ml SYRG IV PRN (15:30)
[2024-11-02] MEDS ORDERED: NITROGLYCERIN 0.4 MG SL TAB SL PRN (15:30)
[2024-11-02] MEDS: ASPirin 325 MG TAB PO ONE (17:08)
[2024-11-02] MEDS: NITROGLYCERIN 0.4 MG SL TAB SL PRN (17:10)
[2024-11-02] MEDS: ACCU-CHEK COMFORT CURVE STRIP VI SCH (18:00)
[2024-11-02] MEDS: InsuLIN REG 1unit/0.01ml Soln (100units/ml) SC SCH (18:00)
--- NOTE | 2024-11-02 18:35 | DVHINCON2 ---
Date of service: Nov 02, 2024 Referring Physician Zoe March NP Reason for Consultation Chest Pain History of Present Illness This is a 64-year old female who initially presented (11/02/2024) with reported left-sided chest pain with associated back and LLQ abdominal pain for approximately 5 days prior to initial presentation. Upon ED arrival, initial 12- lead electrocardiogram had revealed sinus rhythm at 89 bpm with on evidence for acute ischemic changes. Initial HS troponin level was found normal at 4, with subsequent trend of 4, 5, 4, 4. D-Dimer was found unremarkable. Patient however did undergo subsequent CTA of the Chest which revealed no evidence for pulmonary embolism, aneurysm, nor dissection. BNP level was found normal at 26.99 which subsequent chest imaging revealed no evidence for acute cardiopulmonary abnormalities. LDL was found to be 101. Mild elevation of ALT was observed. Lipase was found normal at 25. TSH was found to be 0.09. Of note, patient was found hypertensive on arrival consistent with hypertensive urgency which could have attributed to the clinical picture. As the patient presented with chest discomfort, cardiology services were involved by primary team request for cardiac aspects of care. Past Medical History Reported past medical history includes hypertension, hyperlipidemia, and hypothyroidism, and status post previous left upper extremity thrombectomy (05/2024) Past Surgical History Reviewed Allergies: Coded Allergies: NO KNOWN ALLERGIES (Unverified , 11/02/24) Home Meds Active Scripts Ondansetron Odt 4MG Tab (ZOFRAN PO) 4 Mg Tb, 4 MG PO Q8HPRN PRN for 3 Days, #9 TAB ODT TAB-DISSOLVE IN MOUTH, THEN SWALLOW Prov:RENEA MCCAIN DO 07/19/24 Nitrofurantoin Monohydrate Mac (Macrobid) 100 Mg Cap, 100 MG PO BID for 7 Days, #14 CAP Prov:RENEA MCCAIN DO 07/19/24 Reported Medications Metformin Hydrochloride (Glumetza) 1,000 Mg Tab 11/03/24 Aspirin (Aspirin Low Dose) 81 Mg Tab, 1 TAB PO DAILY 11/03/24 Atorvastatin Calcium (ATORVASTATIN CALCIUM) 40 Mg Tab, 1 TAB PO DAILY 11/03/24 Benazepril Hcl (Benazepril Hcl) 10 Mg Tab, 1 TAB PO DAILY 11/03/24 Amlodipine Besylate (Amlodipine Besylate) 10 Mg Tab, 1 TAB PO DAILY 11/03/24 Levothyroxine Sodium (Levothyroxine Sodium) 200 Mcg Tab, 1 TAB PO DAILY 11/03/24 Current Medications Current Medications Medications (Trade) Dose Ordered Sig/[place] Route PRN Reason Start Time Stop Time Status Last Admin Ondansetron HCl (Zofran) 4 mg Q4HP PRN IV NAUSEA / VOMITING 11/02/24 15:30 Docusate Sodium (Colace Capsule) 100 mg BIDPRN PRN PO FOR CONSTIPATION 11/02/24 15:30 Enoxaparin Sodium (Lovenox) 40 mg DAILY SC 11/03/24 10:00 Nitroglycerin (Ntrostat Sublingual) 0.4 mg Q5MIN PRN SL FOR CHEST PAIN 11/02/24 15:30 11/02/24 17:10 Nitroglycerin (Ntrostat Sublingual) 0.4 mg Q5MINP PRN SL FOR CHEST PAIN 11/02/24 15:30 11/02/24 15:30 DC Morphine Sulfate 2 mg Q30M PRN IV FOR CHEST PAIN 11/02/24 15:30 Diagnostic Test (Pha) (Accu-Chek Comfort Curve T) 1 strip Q6HR 11/02/24 18:00 Insulin Human Regular (InsuLIN R) Q6HR SC 11/02/24 18:00 Dextrose 50 ml UD PRN IV Blood Sugar LESS THAN 60 11/02/24 15:30 Review of Systems A 14-point review of systems is negative unless otherwise noted above Vital Signs Vital Signs Date Time Temp Pulse Resp B/P (MAP) Pulse Ox O2 Delivery O2 Flow Rate FiO2 11/02/24 17:44 97.6 96 20 118/79 (92) 96 97.6 11/02/24 11:00 Room Air* 0 21 Physical Exam Heart: S1 and S2 regular. The patient is in sinus rhythm. Lungs: Clear to auscultation Abdomen: Mild tenderness to palpation, no pulsatile masses Extremities: Distal pulses palpable, 2+. No evidence for peripheral edema Labs/Diagnostic Data Labs Test 11/02/24 11:42 11/02/24 11:00 11/02/24 10:38 Range/Units Troponin I High Sensitivity 4 </=34 ng/L Urine Color Yellow Yellow Urine Clarity Clear Clear Urine pH 5.5 5.0-9.0 Urine Specific [place] 1.030 1.001-1.035 Urine Protein Trace H Negative Urine Ketones Trace Negative Urine Blood Negative Negative /uL Urine Nitrite Negative Negative Urine Bilirubin Negative Negative Urine Urobilinogen 2 H Negative mg/dL Urine Leukocyte Esterase 1+ Negative /uL Urine RBC 1 0 - 4 /hpf Urine Microscopic WBC 2 0-5 /HPF Urine Squamous Epithelial Cells Few <5 /hpf Urine Bacteria None seen None Seen /hpf Urine Mucus Few None Seen Urine Glucose 2+ H Normal mg/dL White Blood Count 7.6 4.4-10.8 10^3/uL Red Blood Count 4.67 4.0-5.20 10^6/uL Hemoglobin 14.0 12.2-16.2 g/dL Hematocrit 40.4 36.0-46.0 % Mean Corpuscular Volume 86.6 80.0-100.0 fL Mean Corpuscular Hemoglobin 30.1 28.0-32.0 pg Mean Corpuscular Hemoglobin Concent 34.7 32.0-36.0 g/dL Red Cell Distribution Width 13.5 11.8-14.3 % Platelet Count 304 140-450 10^3/uL Mean Platelet Volume 7.9 6.9-10.8 fL Neutrophils (%) (Auto) 56.4 37.0-80.0 % Lymphocytes (%) (Auto) 35.5 10.0-50.0 % Monocytes (%) (Auto) 6.4 0.0-12.0 % Eosinophils (%) (Auto) 0.7 0.0-7.0 % Basophils (%) (Auto) 1.0 0.0-2.0 % Neutrophils # (Auto) 4.3 1.6-8.6 10 ^3/uL Lymphocytes # (Auto) 2.7 0.4-5.4 10 ^3/uL Monocytes # (Auto) 0.5 0-1.3 10 ^3/uL Eosinophils # (Auto) 0.1 0-0.8 10 ^3/uL Basophils # (Auto) 0.1 0-0.2 10 ^3/uL Nucleated Red Blood Cells 0.0 % Prothrombin Time 10.6 9.3-11.8 sec Prothrombin Time INR 1.00 0.9-1.15 Activated Partial Thromboplast Time 24.0 L 24.5-34.5 SEC D-Dimer, Quantitative 0.38 0.0-0.49 mg/L FEU Sodium Level 134 L 136-145 mmol/L Potassium Level 3.8 3.5-5.1 mmol/L Chloride Level 101 98-107 mmol/L Carbon Dioxide Level 20 20-31 mmol/L Anion Gap 13 5-15 Blood Urea Nitrogen 16 9-23 mg/dL Creatinine 0.68 0.550-1.02 mg/dL Glomerular Filtration Rate Calc 97 >90 mL/min BUN/Creatinine Ratio 23.5 H 10.0-20.0 Serum Glucose 248 H 74-106 mg/dL Calcium Level 10.4 8.7-10.4 mg/dL Total Bilirubin 0.4 0.2-1.0 mg/dL Aspartate Amino Transferase (AST) 34 13-40 U/L Alanine Aminotransferase (ALT) 53 H 7-40 U/L Alkaline Phosphatase 120 H 46-116 U/L B-Type Natriuretic Peptide 38.19 0-100 pg/mL Total Protein 7.7 5.7-8.2 g/dL Albumin 4.7 3.2-4.8 g/dL Lipase 30 12-53 U/L Plan/Recommendation ASSESSMENT: This is a 64-year old female who initially presented (11/02/2024) with reported left-sided chest pain with associated back and LLQ abdominal pain for approximately 5 days prior to initial presentation. Upon ED arrival, initial 12- lead electrocardiogram had revealed sinus rhythm at 89 bpm with on evidence for acute ischemic changes. Initial HS troponin level was found normal at 4, with subsequent trend of 4, 5, 4, 4. D-Dimer was found unremarkable. Patient however did undergo subsequent CTA of the Chest which revealed no evidence for pulmonary embolism, aneurysm, nor dissection. BNP level was found normal at 26.99 which subsequent chest imaging revealed no evidence for acute cardiopulmonary abnormalities. LDL was found to be 101. Mild elevation of ALT was observed. Lipase was found normal at 25. TSH was found to be 0.09. Of note, patient was found hypertensive on arrival consistent with hypertensive urgency which could have attributed to the clinical picture. As the patient presented with chest discomfort, cardiology services were involved by primary team request for cardiac aspects of care. Reported past medical history includes hypertension, hyperlipidemia, and hypothyroidism, and status post previous left upper extremity thrombectomy (05/2024) Chest pain (HS Troponins 4, 4, 5, 4, 4), ACS not considered Hypertensive urgency Diabetes mellitus II Hypothyroidism Hyperlipidemia Abnormal LFT CARDIAC SUGGESTIONS FOR MANAGEMENT: Request for CPK level Request for 2D Echocardiogram Request for CT Abdominal/Pelvis without contrast As HS troponin trend is found negative, no ischemic workup is warranted at present time If patient persists with chest discomfort beyond discharge, out-patient ischemic workup up by NST can be justified To proceed with optimized medical therapy and risk factor modification as concurrent conditions permit during interim Statin therapy currently held secondary to abnormal liver function test (resume upon interval improvement) Metoprolol Tartrate 25mg twice daily Benazepril 10mg once daily Amlodipine 10mg daily Aspirin 81mg daily Proceed with close rate and rhythm surveillance Proceed with close hemodynamic surveillance Proceed with optimized blood pressure control Transfuse to sustain HGB level above 7.0 Sustain Magnesium level greater than 2.0 Sustain Potassium level greater than 4.0 Follow up renal function and electrolytes Management of hypothyroidism as per primary team Management of abnormal LFTs as per primary team Management of co-morbidities as per primary team On Lovenox for DVT prophylaxis Management in telemetry Will proceed to follow from a cardiac perspective Further recommendations per clinical progression All available diagnostic labs, EKG's, and images were personally reviewed Patient's status, findings, and plan of care was reviewed and discussed with supervising physician Dr. Her, who is in agreement with current plan of care. Plan of care discussed with and agreed upon by patient / primary RN Prognosis: Guarded Thank you for allowing me to participate in the care of this patient. Further recommendations based on patients clinical course and progression, primary attending, and other consultants. Will continue to follow with primary attending. If you have any questions or concerns, please do not hesitate to contact me. A total of 75 minutes was spent reviewing the patient record, examining the patient, making a diagnostic and therapeutic plan, discussing this plan with medical personnel, following up on diagnostic studies and following the patient for clinical stability excluding any and all procedures. At least 50% of this time was spent in direct, [id number] contact. Plan discussed with: Patient (Patient and Primary RN ) MARS MACE Nov 02, 2024 18:35
[2024-11-02] MEDS: diphenhdrAMINE HCL 25 MG CAP PO ONE (19:13)
[2024-11-02] MEDS: ONDANSETRON HCL 4 MG/2 ML VIAL IV PRN (21:01)
[2024-11-02] MEDS ORDERED: hydrALAZINE HCL 20 MG/ML VL IV PRN (21:15)
[2024-11-02 21:35] VITALS: BP 165/84; PULSE 88; RESP 20; TEMP 98.3; O2SAT 98
[2024-11-02] MEDS: diphenhdrAMINE HCL 25 MG CAP PO PRN (23:22)
[2024-11-03] VITALS (10 sets, daily range): BP systolic 126–175; BP diastolic 70–94; PULSE 72–86; RESP 17–20; TEMP 97.4–98.3; O2SAT 96–99
[2024-11-03] MEDS ORDERED: [UNRECOGNIZED DRUG - CODE] (06:33)
[2024-11-03] MEDS ORDERED: ASPI-325 PO (06:33)
[2024-11-03] MEDS ORDERED: AMLO1TAB23 PO (06:33)
[2024-11-03] MEDS ORDERED: LEVO200T7 PO (06:33)
[2024-11-03] MEDS ORDERED: ATOR40TA52 PO (06:33)
[2024-11-03] MEDS ORDERED: BENA10TA90 PO (06:33)
--- NOTE | 2024-11-03 06:35 | DVHPN2 ---
Progress Note - Dictate Date Seen: Nov 03, 2024 Medical Necessity Reason Pt with a Central, PICC or Fol: No vital signs Vital Sign Date Time Temp Pulse Resp B/P (MAP) Pulse Ox O2 Delivery O2 Flow Rate FiO2 11/03/24 05:00 97.4 85 20 148/81 (103) 96 97.4 11/02/24 11:00 Room Air* 0 21 medications Current Medications Medications Dose Ordered Sig/[place] Route Start Time Stop Time Status Last Admin Dose Admin Ondansetron HCl 4 mg Q4HP PRN IV 11/02/24 15:30 11/02/24 21:01 4 MG Docusate Sodium 100 mg BIDPRN PRN PO 11/02/24 15:30 Enoxaparin Sodium 40 mg DAILY SC 11/03/24 10:00 Nitroglycerin 0.4 mg Q5MIN PRN SL 11/02/24 15:30 11/02/24 17:10 0.4 MG Morphine Sulfate 2 mg Q30M PRN IV 11/02/24 15:30 Diagnostic Test (Pha) 1 strip Q6HR 11/02/24 18:00 11/03/24 04:37 1 STRIP Insulin Human Regular Q6HR SC 11/02/24 18:00 11/03/24 00:00 2 UNITS Dextrose 50 ml UD PRN IV 11/02/24 15:30 Hydralazine HCl 10 mg Q6HP PRN IV 11/02/24 21:15 Diphenhydramine HCl 25 mg Q6HP PRN PO 11/02/24 21:30 11/03/24 03:51 25 MG Amlodipine Besylate 10 mg DAILY PO 11/03/24 10:00 Benazepril HCl 10 mg DAILY PO 11/03/24 10:00 Metoprolol Tartrate 25 mg BID PO 11/03/24 10:00 Atorvastatin Calcium 40 mg HS PO 11/03/24 22:00 Aspirin 81 mg DAILY PO 11/03/24 10:00 UNV Benazepril HCl 10 mg DAILY PO 11/03/24 10:00 UNV Patient Own Medication 1 tab DAILY PO 11/03/24 10:00 UNV Patient Own Medication 1 tab DAILY PO 11/03/24 10:00 UNV Patient Own Medication 1 tab DAILY PO 11/03/24 10:00 UNV objective General Appearance: alert, no distress HEENT: EOMI, PERRLA, normal external inspect of ears, no icterus, no nasal drainage Neck: no carotid bruit, no jugular venous distention (JVD), no lymphadenopathy Chest: normal thorax Respiratory: clear to auscultation, normal air movement Cardiovascular: regular rate and rhythm, no diastolic murmur, no jugular venous distention (JVD), no rub, no systolic murmur Abdominal: soft, no hepatomegaly, no mass, no splenomegaly, no tenderness Genitourinary: grossly normal external Musculoskeletal: no joint tenderness, no swelling Extremities: normal pulses, no calf tenderness, no clubbing, no cyanosis, no edema Skin: no bruising, no jaundice, no rash Neurological: alert, No focal deficit laboratory and microbiology Laboratory Tests 11/02/24 10:38 Test 11/02/24 10:38 Range/Units Serum Glucose 248 H 74-106 mg/dL Problem List 1. Unstable Angina Monitor, cardiology consult 2. 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 Hypothyroidism Monitor, restart thyroid medication Assessment/Plan Subjective: Patient is awake and alert. Objective: Patient was admitted for unstable angina. Troponin levels were negative. Patient was on 200 mics of thyroid medication. TSH is low. I did reduce thyroid medication. Plan: Cardiology evaluation. Plan for echocardiogram. Plan discussed with: Patient, Other DAYA SAMUELS NP Nov 03, 2024 06:35
[2024-11-03 06:59] LABS: Basophils # (auto) 0.1 10 ^3/uL (0-0.2); Basophils % (auto) 0.8 % (0.0-2.0); Eosinophils # (auto) 0.1 10 ^3/uL (0-0.8); Hematocrit 40.5 % (36.0-46.0); Hemoglobin 13.8 g/dL (12.2-16.2); Lymphocytes % (auto) 31.6 % (10.0-50.0); Mean Corpuscular Hemoglobin 29.6 pg (28.0-32.0); Mean Corpuscular Hgb Conc. 34.2 g/dL (32.0-36.0); Mean Corpuscular Volume 86.6 fL (80.0-100.0); Monocytes # (auto) 0.5 10 ^3/uL (0-1.3); Monocytes % (auto) 7.6 % (0.0-12.0); Neutrophils # (auto) 3.7 10 ^3/uL (1.6-8.6); Nucleated Red Blood Cells % 0.1 %; Platelet Count (auto) 272 10^3/uL (140-450); Red Blood Cells 4.67 10^6/uL (4.0-5.20); Red Cell Distribution Width 13.4 % (11.8-14.3); White Blood Cell 6.4 10^3/uL (4.4-10.8)
[2024-11-03 07:16] LABS: Albumin 4.5 g/dL (3.2-4.8); Alkaline Phosphatase 92 U/L (46-116); Anion Gap 8 (5-15); Aspartate Aminotransferase 36 U/L (13-40); BUN/Creatinine Ratio 19.6 (10.0-20.0); Blood Urea Nitrogen 11 mg/dL (9-23); Carbon Dioxide 26 mmol/L (20-31); Chloride 102 mmol/L (98-107); Potassium 4.2 mmol/L (3.5-5.1); Sodium 136 mmol/L (136-145); Total Protein 7.2 g/dL (5.7-8.2); Triglycerides 100 mg/dL (< 150)
[2024-11-03 07:17] LABS: Alanine Aminotransferase 50 U/L (7-40); Bilirubin, Total 0.5 mg/dL (0.2-1.0); Cholesterol 172 mg/dL (< 200); Glucose 139 mg/dL (74-106); HDL Cholesterol 57 mg/dL (40-59); LDL Cholesterol 101 mg/dL (< 100)
[2024-11-03] MEDS ORDERED: LEVOTHYROXINE SODIUM 100 MCG TAB PO SCH (07:30)
[2024-11-03] MEDS ORDERED: ONDANSETRON HCL 4 MG/2 ML VIAL IV PRN (08:00)
[2024-11-03] MEDS ORDERED: MORPHINE SULFATE INJ 2 MG/ml SYRG IV PRN (08:15)
[2024-11-03] MEDS: MORPHINE SULFATE INJ 2 MG/ml SYRG IV ONE (09:16)
[2024-11-03] MEDS: ENOXAPARIN SOD 40 MG/0.4 ML SYRINGE SC SCH (09:16)
[2024-11-03] MEDS: ASPirin-EC 81 mg tab PO SCH (09:36)
[2024-11-03] MEDS: BENAZEPRIL HCL 10 MG TAB PO SCH (09:37)
[2024-11-03] MEDS: METOPROLOL TARTRATE 25 MG TAB PO SCH (09:37)
[2024-11-03] MEDS: amLODIPine BESYLATE 5 MG TAB PO SCH (09:38)
--- NOTE | 2024-11-03 09:40 | DVH ---
Procedure: CT CT AB PEL WO CON-NO ORAL OR IV 11/03/2024 08:15 AM Indication: Low/left abd pain Comparison Study: CT CT AB PEL WO CON-NO ORAL OR IV on DOS: 07/19/24 Technique: Axial images were obtained and reformatted in coronal and sagittal planes. All CT scans at this medical facility are performed using dose modulation techniques as appropriate to a performed e xam including the following: Automated exposure control was utilized; adjustment of the MA and/or KV according to patient size; and use of iterative reconstruction technique. CT Dose: CTDI volume is 6.2 9 mGy. Dose-length product is 339.55 mGy*cm FINDINGS: Lower Chest: Subpleural reticular opacities likely fibrosis. Hepatobiliary: Unremarkable. Spleen: Unremarkable. Pancreas: Unremarkable. Adrenal Glands: Unremarkable. tract: The kidneys are normal in size bilaterally without hydronephrosis . Mild bilateral hydronep hrosis. A 2 mm nonobstructing stone noted midpole of the left kidney. No bladder wall thickening. S ubcentimeter focus of air noted in the bladder lumen. GI tract: The stomach is grossly normal in appearance. No evidence of small bowel obstruction. The la rge bowel is unremarkable. The appendix is not visualized. No inflammatory change is noted in the rig ht lower quadrant. Lymphatics: No mesenteric, retroperitoneal or periportal lymphadenopathy. Vasculature: The abdominal aorta is normal in caliber. Pelvic Organs: Unremarkable Bones/soft tissues: No acute abnormality. Other: None. IMPRESSION: 1. Interval development of mild bilateral hydronephrosis. No obstructing calculi or hydroureter. 2. Stable subcentimeter nonobstructing left renal stone. 3. Subcentimeter air focus in the urinary bladder likely related to recent instrumentation. Correlat e with history. No bladder wall thickening.
[2024-11-03] MEDS ORDERED: PATIENTS OWN MEDICATION (Atorvastatin Calcium 1 TAB) PO SCH (10:00)
[2024-11-03] MEDS ORDERED: BENAZEPRIL HCL 10 MG TAB PO SCH (10:00)
[2024-11-03] MEDS ORDERED: PATIENTS OWN MEDICATION (Amlodipine Besylate 1 TAB) PO SCH (10:00)
[2024-11-03] MEDS: LEVOTHYROXINE SODIUM 100 MCG TAB PO SCH (13:40)
--- NOTE | 2024-11-03 13:59 | DVHPN2 ---
Progress Note - Dictate Date Seen: Nov 03, 2024 Medical Necessity Reason Pt with a Central, PICC or Fol: No vital signs Vital Sign Date Time Temp Pulse Resp B/P (MAP) Pulse Ox O2 Delivery O2 Flow Rate FiO2 11/03/24 10:37 63 115/63 11/03/24 09:16 20 11/03/24 05:00 97.4 96 97.4 11/02/24 11:00 Room Air* 0 21 medications Current Medications Medications Dose Ordered Sig/[place] Route Start Time Stop Time Status Last Admin Dose Admin Docusate Sodium 100 mg BIDPRN PRN PO 11/02/24 15:30 Enoxaparin Sodium 40 mg DAILY SC 11/03/24 10:00 11/03/24 09:16 40 MG Nitroglycerin 0.4 mg Q5MIN PRN SL 11/02/24 15:30 11/02/24 17:10 0.4 MG Morphine Sulfate 2 mg Q30M PRN IV 11/02/24 15:30 Diagnostic Test (Pha) 1 strip Q6HR 11/02/24 18:00 11/03/24 12:46 1 STRIP Insulin Human Regular Q6HR SC 11/02/24 18:00 11/03/24 12:46 3 UNITS Dextrose 50 ml UD PRN IV 11/02/24 15:30 Hydralazine HCl 10 mg Q6HP PRN IV 11/02/24 21:15 Diphenhydramine HCl 25 mg Q6HP PRN PO 11/02/24 21:30 11/03/24 03:51 25 MG Amlodipine Besylate 10 mg DAILY PO 11/03/24 10:00 11/03/24 09:38 10 MG Metoprolol Tartrate 25 mg BID PO 11/03/24 10:00 11/03/24 09:37 25 MG Atorvastatin Calcium 40 mg HS PO 11/03/24 22:00 Aspirin 81 mg DAILY PO 11/03/24 10:00 11/03/24 09:36 81 MG Benazepril HCl 10 mg DAILY PO 11/03/24 10:00 11/03/24 09:37 10 MG Levothyroxine Sodium 150 mcg DAILY@0730 PO 11/03/24 08:00 11/03/24 13:40 150 MCG Ondansetron HCl 4 mg Q4HPRN PRN IV 11/03/24 08:00 Morphine Sulfate 2 mg Q4HPRN PRN IV 11/03/24 08:15 Acetaminophen/ Hydrocodone Bitart 1 tab Q6HPRN PRN PO 11/03/24 08:15 laboratory and microbiology Laboratory Tests 11/03/24 06:31 Test 11/03/24 06:31 Range/Units Serum Glucose 139 H 74-106 mg/dL Assessment/Plan ASSESSMENT: This is a 64-year old female who initially presented (11/02/2024) with reported left-sided chest pain with associated back and LLQ abdominal pain for approximately 5 days prior to initial presentation. Upon ED arrival, initial 12- lead electrocardiogram had revealed sinus rhythm at 89 bpm with on evidence for acute ischemic changes. Initial HS troponin level was found normal at 4, with subsequent trend of 4, 5, 4, 4. D-Dimer was found unremarkable. Patient however did undergo subsequent CTA of the Chest which revealed no evidence for pulmonary embolism, aneurysm, nor dissection. BNP level was found normal at 26.99 which subsequent chest imaging revealed no evidence for acute cardiopulmonary abnormalities. LDL was found to be 101. Mild elevation of ALT was observed. Lipase was found normal at 25. TSH was found to be 0.09. Of note, patient was found hypertensive on arrival consistent with hypertensive urgency which could have attributed to the clinical picture. As the patient presented with chest discomfort, cardiology services were involved by primary team request for cardiac aspects of care. Reported past medical history includes hypertension, hyperlipidemia, and hypothyroidism, and status post previous left upper extremity thrombectomy (05/2024) Chest pain (HS Troponins 4, 4, 5, 4, 4), ACS not considered LLQ Abdominal pain, likely secondary to non-obstructive renal calculus Presence of bilateral hydronephrosis, mild Hypertensive urgency, improving Diabetes mellitus II, A1C of 7.8 Hyperlipidemia, LDL of 101 Abnormal LFT, improving Hypothyroidism CARDIAC SUGGESTIONS FOR MANAGEMENT: Awaiting requested 2D Echocardiogram As HS troponin trend is found negative, no ischemic workup is warranted at present time If patient persists with chest discomfort beyond discharge, out-patient ischemic workup up by NST can be justified To proceed with optimized medical therapy and risk factor modification as concurrent conditions permit during interim Statin therapy currently held secondary to abnormal liver function test (resume upon interval improvement) Metoprolol Tartrate 25mg twice daily Benazepril 10mg once daily Amlodipine 10mg daily Aspirin 81mg daily Proceed with close rate and rhythm surveillance Proceed with close hemodynamic surveillance Proceed with optimized blood pressure control Transfuse to sustain HGB level above 7.0 Sustain Magnesium level greater than 2.0 Sustain Potassium level greater than 4.0 Follow up renal function and electrolytes Management of hydronephrosis/left-sided renal calculus as per primary team Consider Urology evaluation for bilateral hydronephrosis if warranted Management of hypothyroidism/DM as per primary team Management of abnormal LFTs as per primary team Management of co-morbidities as per primary team On Lovenox for DVT prophylaxis Management in telemetry Will proceed to follow from a cardiac perspective Further recommendations per clinical progression All available diagnostic labs, EKG's, and images were personally reviewed Patient's status, findings, and plan of care was reviewed and discussed with supervising physician Dr. Her, who is in agreement with current plan of care. Plan of care discussed with and agreed upon by patient / primary RN Prognosis: Guarded Thank you for allowing me to participate in the care of this patient. Further recommendations based on patients clinical course and progression, primary attending, and other consultants. Will continue to follow with primary attending. If you have any questions or concerns, please do not hesitate to contact me. A total of 75 minutes was spent reviewing the patient record, examining the patient, making a diagnostic and therapeutic plan, discussing this plan with medical personnel, following up on diagnostic studies and following the patient for clinical stability excluding any and all procedures. At least 50% of this time was spent in direct, [id number] contact. Plan discussed with: Patient (patient and primary rn ) MARS MACE Nov 03, 2024 13:59
[2024-11-03] MEDS: HYDROcodone-ACET 5/325MG TAB PO PRN (19:40)
[2024-11-03] MEDS ORDERED: ATORVASTATIN 20 MG TAB PO SCH (22:00)
[2024-11-04 00:41] VITALS: BP 132/71; PULSE 68; RESP 17; TEMP 97.9; O2SAT 99
[2024-11-04 05:17] VITALS: BP 120/69; PULSE 80; RESP 16; TEMP 98.3; O2SAT 99
--- NOTE | 2024-11-04 07:54 | DVHPN2 ---
Progress Note - Dictate Medical Necessity Reason Pt with a Central, PICC or Fol: No vital signs Vital Sign Date Time Temp Pulse Resp B/P (MAP) Pulse Ox O2 Delivery O2 Flow Rate FiO2 11/04/24 05:17 98.3 80 16 120/69 (86) 99 98.3 11/03/24 20:00 Room Air* 0 21 Total Intake and Output 11/03/24 11/03/24 11/04/24 15:00 23:00 07:00 Intake Total 0 ml 250 ml Balance 0 ml 250 ml medications Current Medications Medications Dose Ordered Sig/[place] Route Start Time Stop Time Status Last Admin Dose Admin Docusate Sodium 100 mg BIDPRN PRN PO 11/02/24 15:30 Enoxaparin Sodium 40 mg DAILY SC 11/03/24 10:00 11/03/24 09:16 40 MG Nitroglycerin 0.4 mg Q5MIN PRN SL 11/02/24 15:30 11/02/24 17:10 0.4 MG Morphine Sulfate 2 mg Q30M PRN IV 11/02/24 15:30 Diagnostic Test (Pha) 1 strip Q6HR 11/02/24 18:00 11/04/24 06:00 1 STRIP Insulin Human Regular Q6HR SC 11/02/24 18:00 11/04/24 06:40 2 UNITS Dextrose 50 ml UD PRN IV 11/02/24 15:30 Hydralazine HCl 10 mg Q6HP PRN IV 11/02/24 21:15 Diphenhydramine HCl 25 mg Q6HP PRN PO 11/02/24 21:30 11/03/24 03:51 25 MG Amlodipine Besylate 10 mg DAILY PO 11/03/24 10:00 11/03/24 09:38 10 MG Metoprolol Tartrate 25 mg BID PO 11/03/24 10:00 11/03/24 21:00 25 MG Aspirin 81 mg DAILY PO 11/03/24 10:00 11/03/24 09:36 81 MG Benazepril HCl 10 mg DAILY PO 11/03/24 10:00 11/03/24 09:37 10 MG Levothyroxine Sodium 150 mcg DAILY@0730 PO 11/03/24 08:00 11/04/24 06:40 150 MCG Ondansetron HCl 4 mg Q4HPRN PRN IV 11/03/24 08:00 Morphine Sulfate 2 mg Q4HPRN PRN IV 11/03/24 08:15 Acetaminophen/ Hydrocodone Bitart 1 tab Q6HPRN PRN PO 11/03/24 08:15 11/03/24 19:40 1 TAB objective General Appearance: alert, no distress HEENT: EOMI, PERRLA, normal external inspect of ears, no icterus, no nasal drainage Neck: no carotid bruit, no jugular venous distention (JVD), no lymphadenopathy Chest: normal thorax Respiratory: clear to auscultation, normal air movement Cardiovascular: regular rate and rhythm, no diastolic murmur, no jugular venous distention (JVD), no rub, no systolic murmur Abdominal: soft, no hepatomegaly, no mass, no splenomegaly, no tenderness Genitourinary: grossly normal external Musculoskeletal: no joint tenderness, no swelling Extremities: normal pulses, no calf tenderness, no clubbing, no cyanosis, no edema Skin: no bruising, no jaundice, no rash Neurological: alert, No focal deficit laboratory and microbiology Laboratory Tests 11/03/24 06:31 Test 11/03/24 06:31 Range/Units Serum Glucose 139 H 74-106 mg/dL Problem List 1. Unstable Angina Monitor, cardiology consult 2. 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 Hypothyroidism Monitor, restart thyroid medication Assessment/Plan Subjective: Patient is awake and alert. Objective: Patient was admitted for unstable angina. Troponin levels were negative. Patient was on 200 mics of thyroid medication. TSH is low. I did reduce thyroid medication. Plan: Cardiology evaluation. Plan for echocardiogram. DAYA SAMUELS NP Nov 04, 2024 07:54
[2024-11-04 08:00] VITALS: PULSE 71; PULSE 75; RESP 16; O2SAT 98
--- NOTE | 2024-11-04 08:10 | DVHSR ---
APPROVED REPORT EXAM: Two-dimensional and M-mode echocardiogram with Doppler and color Doppler. Blood Pressure: 148/81 mmHg INDICATION Chest Pain RISK FACTORS Height: 50, Weight: 110 DIMENSIONS LVDd3.7 (3.8-5.7cm)LA (2D)3.2 (1.9-4.0cm)Aortic Root3.1 (2.0-3.7cm) LVDs2.4 (2.5-4.0cm)LA (MM) (1.9-4.0cm)Aortic Cusp Exc1.5 (1.5-2.0cm) EF (%) 65.0 (55-70%)Rt. Atrium2.9 (1.9-4.0cm)Asc. Aorta cm Mitral Valve MitralMitral Stenosis E wave0.76m/sMV Mean GR.3mmHg A wave1.32m/sMV Peak GR.81mmHg E/A ratio0.62D MVAcm2 DECEL [id number] 1/2 [id number] IVRTmsDop MVA4.71cm2 Aortic Valve Aortic ValveAortic Stenosis V10.87m/[place] Mean GR.3mmHg V21.22m/[place] Peak GR.6mmHg LVOT Diameter2.0 (1.8-2.4cm)Doppler AVA2.24cm2 AI P 1/2 Nsqx194.97ms Pulmonic Valve V21.00m/s Tricuspid Valve TR Velocity2.39m/s [id number] Conclusion Left ventricle: Left ventricle was normal-sized with normal systolic function. LVEF was around 65%. There was no gross wall motion abnormality. Right ventricle was normal-sized with normal systolic function. Both atria were normal-sized. Aortic valve: There was no aortic insufficiency/stenosis. There was trace mitral/tricuspid regurgit ation. There was trace pulmonary valve insufficiency. Right ventricular systolic pressure was assessed at 30 mm Hg. There was trivial pericardial effusion .
[2024-11-04] MEDS: DOCUSATE SOD 100 MG CAP PO PRN (08:49)
[2024-11-04 09:00] VITALS: BP 133/78; PULSE 71; RESP 16; TEMP 98; O2SAT 98
--- NOTE | 2024-11-04 09:41 | DVHPN2 ---
Progress Note - Dictate Date Seen: Nov 04, 2024 Medical Necessity Reason Pt with a Central, PICC or Fol: No vital signs Vital Sign Date Time Temp Pulse Resp B/P (MAP) Pulse Ox O2 Delivery O2 Flow Rate FiO2 11/04/24 09:00 98.0 71 16 133/78 (96) 98 98.0 11/03/24 20:00 Room Air* 0 21 Total Intake and Output 11/03/24 11/03/24 11/04/24 15:00 23:00 07:00 Intake Total 0 ml 250 ml Balance 0 ml 250 ml medications Current Medications Medications Dose Ordered Sig/[place] Route Start Time Stop Time Status Last Admin Dose Admin Docusate Sodium 100 mg BIDPRN PRN PO 11/02/24 15:30 11/04/24 08:49 100 MG Enoxaparin Sodium 40 mg DAILY SC 11/03/24 10:00 11/04/24 08:22 40 MG Nitroglycerin 0.4 mg Q5MIN PRN SL 11/02/24 15:30 11/02/24 17:10 0.4 MG Morphine Sulfate 2 mg Q30M PRN IV 11/02/24 15:30 Diagnostic Test (Pha) 1 strip Q6HR 11/02/24 18:00 11/04/24 06:00 1 STRIP Insulin Human Regular Q6HR SC 11/02/24 18:00 11/04/24 06:40 2 UNITS Dextrose 50 ml UD PRN IV 11/02/24 15:30 Hydralazine HCl 10 mg Q6HP PRN IV 11/02/24 21:15 Diphenhydramine HCl 25 mg Q6HP PRN PO 11/02/24 21:30 11/04/24 08:20 25 MG Amlodipine Besylate 10 mg DAILY PO 11/03/24 10:00 11/04/24 08:21 10 MG Metoprolol Tartrate 25 mg BID PO 11/03/24 10:00 11/04/24 08:21 25 MG Aspirin 81 mg DAILY PO 11/03/24 10:00 11/04/24 08:20 81 MG Benazepril HCl 10 mg DAILY PO 11/03/24 10:00 11/04/24 08:21 10 MG Levothyroxine Sodium 150 mcg DAILY@0730 PO 11/03/24 08:00 11/04/24 06:40 150 MCG Ondansetron HCl 4 mg Q4HPRN PRN IV 11/03/24 08:00 Morphine Sulfate 2 mg Q4HPRN PRN IV 11/03/24 08:15 Acetaminophen/ Hydrocodone Bitart 1 tab Q6HPRN PRN PO 11/03/24 08:15 11/03/24 19:40 1 TAB laboratory and microbiology Laboratory Tests 11/03/24 06:31 Test 11/03/24 06:31 Range/Units Serum Glucose 139 H 74-106 mg/dL Assessment/Plan ASSESSMENT: This is a 64-year old female who initially presented (11/02/2024) with reported left-sided chest pain with associated back and LLQ abdominal pain for approximately 5 days prior to initial presentation. Upon ED arrival, initial 12- lead electrocardiogram had revealed sinus rhythm at 89 bpm with on evidence for acute ischemic changes. Initial HS troponin level was found normal at 4, with subsequent trend of 4, 5, 4, 4. D-Dimer was found unremarkable. Patient however did undergo subsequent CTA of the Chest which revealed no evidence for pulmonary embolism, aneurysm, nor dissection. BNP level was found normal at 26.99 which subsequent chest imaging revealed no evidence for acute cardiopulmonary abnormalities. LDL was found to be 101. Mild elevation of ALT was observed. Lipase was found normal at 25. TSH was found to be 0.09. Of note, patient was found hypertensive on arrival consistent with hypertensive urgency which could have attributed to the clinical picture. As the patient presented with chest discomfort, cardiology services were involved by primary team request for cardiac aspects of care. Reported past medical history includes hypertension, hyperlipidemia, and hypothyroidism, and status post previous left upper extremity thrombectomy (05/2024) Echocardiogram revealed: Left ventricle: Left ventricle was normal-sized with normal systolic function. LVEF was around 65%. There was no gross wall motion abnormality. Right ventricle was normal-sized with normal systolic function. Both atria were normal-sized. Aortic valve: There was no aortic insufficiency/stenosis. There was trace mitral/tricuspid regurgitation. There was trace pulmonary valve insufficiency. Right ventricular systolic pressure was assessed at 30 mm Hg. There was trivial pericardial effusion. Chest pain (HS Troponins 4, 4, 5, 4, 4), ACS not considered LLQ Abdominal pain, likely secondary to non-obstructive renal calculus Presence of bilateral hydronephrosis, mild Hypertensive urgency, improving Diabetes mellitus II, A1C of 7.8 Hyperlipidemia, LDL of 101 Abnormal LFT, improving Hypothyroidism Kidney stone CARDIAC SUGGESTIONS FOR MANAGEMENT: As HS troponin trend is found negative, no ischemic workup is warranted at present time To proceed with optimized medical therapy and risk factor modification as concurrent conditions permit during interim Statin therapy currently held secondary to abnormal liver function test (resume upon interval improvement) Metoprolol Tartrate 25mg twice daily Benazepril 10mg once daily Amlodipine 10mg daily Aspirin 81mg daily Cardiac johnson, can be followed as outpatient Proceed with close rate and rhythm surveillance Proceed with close hemodynamic surveillance Proceed with optimized blood pressure control Transfuse to sustain HGB level above 7.0 Sustain Magnesium level greater than 2.0 Sustain Potassium level greater than 4.0 Follow up renal function and electrolytes Management of hydronephrosis/left-sided renal calculus as per primary team Consider Urology evaluation for bilateral hydronephrosis if warranted Management of hypothyroidism/DM as per primary team Management of abnormal LFTs as per primary team Management of co-morbidities as per primary team On Lovenox for DVT prophylaxis Management in telemetry Will proceed to follow from a cardiac perspective Further recommendations per clinical progression All available diagnostic labs, EKG's, and images were personally reviewed Plan of care discussed with and agreed upon by patient / primary RN Prognosis: Guarded Thank you for allowing me to participate in the care of this patient. Further recommendations based on patients clinical course and progression, primary attending, and other consultants. Will continue to follow with primary attending. If you have any questions or concerns, please do not hesitate to contact me. A total of 55 minutes was spent reviewing the patient record, examining the patient, making a diagnostic and therapeutic plan, discussing this plan with medical personnel, following up on diagnostic studies and following the patient for clinical stability excluding any and all procedures. At least 50% of this time was spent in direct, [id number] contact. Plan discussed with: Patient, Other (nurse) MIGUE BOYD MD Nov 04, 2024 09:41
[2024-11-04] MEDS ORDERED: LEVO150T10 PO (10:15)
--- NOTE | 2024-11-04 10:16 | DVHDS2 ---
Discharge Summary Date of Admission Nov 02, 2024 at 15:16 Date of Discharge: Nov 04, 2024 Labs/Diagnostic Data: Laboratory Results Test 11/04/24 06:15 11/03/24 10:50 11/03/24 10:40 11/03/24 06:31 POC Glucose 149 mg/dl (70-106) Troponin I High Sensitivity 4 ng/L (</=34) Creatine Kinase 48 U/L (34-145) White Blood Count 6.4 10^3/uL (4.4-10.8) Red Blood Count 4.67 10^6/uL (4.0-5.20) Hemoglobin 13.8 g/dL (12.2-16.2) Hematocrit 40.5 % (36.0-46.0) Mean Corpuscular Volume 86.6 fL (80.0-100.0) Mean Corpuscular Hemoglobin 29.6 pg (28.0-32.0) Mean Corpuscular Hemoglobin Concent 34.2 g/dL (32.0-36.0) Red Cell Distribution Width 13.4 % (11.8-14.3) Platelet Count 272 10^3/uL (140-450) Mean Platelet Volume 8.0 fL (6.9-10.8) Neutrophils (%) (Auto) 58.0 % (37.0-80.0) Lymphocytes (%) (Auto) 31.6 % (10.0-50.0) Monocytes (%) (Auto) 7.6 % (0.0-12.0) Eosinophils (%) (Auto) 2.0 % (0.0-7.0) Basophils (%) (Auto) 0.8 % (0.0-2.0) Neutrophils # (Auto) 3.7 10 ^3/uL (1.6-8.6) Lymphocytes # (Auto) 2.0 10 ^3/uL (0.4-5.4) Monocytes # (Auto) 0.5 10 ^3/uL (0-1.3) Eosinophils # (Auto) 0.1 10 ^3/uL (0-0.8) Basophils # (Auto) 0.1 10 ^3/uL (0-0.2) Nucleated Red Blood Cells 0.1 % Sodium Level 136 mmol/L (136-145) Potassium Level 4.2 mmol/L (3.5-5.1) Chloride Level 102 mmol/L (98-107) Carbon Dioxide Level 26 mmol/L (20-31) Anion Gap 8 (5-15) Blood Urea Nitrogen 11 mg/dL (9-23) Creatinine 0.56 mg/dL (0.550-1.02) Glomerular Filtration Rate Calc 102 mL/min (>90) BUN/Creatinine Ratio 19.6 (10.0-20.0) Serum Glucose 139 mg/dL (74-106) Hemoglobin A1c 7.8 % A1C (<5.7) Calcium Level 10.0 mg/dL (8.7-10.4) Total Bilirubin 0.5 mg/dL (0.2-1.0) Aspartate Amino Transferase (AST) 36 U/L (13-40) Alanine Aminotransferase (ALT) 50 U/L (7-40) Alkaline Phosphatase 92 U/L (46-116) B-Type Natriuretic Peptide 26.99 pg/mL (0-100) Total Protein 7.2 g/dL (5.7-8.2) Albumin 4.5 g/dL (3.2-4.8) Triglycerides Level 100 mg/dL (< 150) Cholesterol Level 172 mg/dL (< 200) LDL Cholesterol 101 mg/dL (< 100) HDL Cholesterol 57 mg/dL (40-59) Lipase 25 U/L (12-53) Thyroid Stimulating Hormone (TSH) 0.09 uIU/mL (0.55-4.78) Test 11/02/24 11:00 11/02/24 10:38 Urine Color Yellow (Yellow) Urine Clarity Clear (Clear) Urine pH 5.5 (5.0-9.0) Urine Specific [place] 1.030 (1.001-1.035) Urine Protein Trace (Negative) Urine Ketones Trace (Negative) Urine Blood Negative /uL (Negative) Urine Nitrite Negative (Negative) Urine Bilirubin Negative (Negative) Urine Urobilinogen 2 mg/dL (Negative) Urine Leukocyte Esterase 1+ /uL (Negative) Urine RBC 1 /hpf (0 - 4) Urine Microscopic WBC 2 /HPF (0-5) Urine Squamous Epithelial Cells Few /hpf (<5) Urine Bacteria None seen /hpf (None Seen) Urine Mucus Few (None Seen) Urine Glucose 2+ mg/dL (Normal) Prothrombin Time 10.6 sec (9.3-11.8) Prothrombin Time INR 1.00 (0.9-1.15) Activated Partial Thromboplast Time 24.0 SEC (24.5-34.5) D-Dimer, Quantitative 0.38 mg/L FEU (0.0-0.49) Other Laboratory Tests 11/03/24 06:31 Brief Hx & Hospital Course: Patient is a 64-year-old female who presents to the emergency department with a CC of back pain that radiates to her chest. Patient has been reporting thoracic back pain with left-sided pressure like chest pain, shortness of breath, bilateral hand numbness for 5 days, and lower left quadrant abdominal pain. Patient states that pain in her back is worse when pushed on. Patient reports in March 2024 she had a left arm thrombectomy in [place]. Patient denies any other symptoms at this time. Patient was admitted for unstable angina. Patient was seen by cardiology. D- dimer was negative. Echocardiogram was done, EF is estimated at 65%. Patient has underlying history of high cholesterol. TSH is 0.05. Patient was previously given a dose of Synthroid at 200 mcg which may be too high for patient. Plan is to discontinue current Synthroid dose, prescribed 150 mcg of Synthroid. Patient to follow up with her PCP in 1 month. Patient's chest pain is noncardiac in nature, could be related to starting signs of hyperthyroidism. There were no complaints or new complaints upon discharge, all questions and concerns were answered. Patient was advised to return to the ER or call 911 if any headaches, dizziness, shortness of breath, chest pain, bleeding, fevers, or worsening of medical condition. Patient/Family was counseled about treatment plan, medications, possible side effects, patientverbalized understanding. All questions were answered to the best of my ability. The patient symptoms improved and they are okay to be DC. Condition at Discharge: Stable Final Diagnosis/Problems List Chest pain, ACS ruled out Hypothyroid-TSH 0.09- current dose thyroid medicine may be too high Start synthroid 150 mcg daily- repeat TSH in 1 month Unstable Angina HLD DM 2 with neuropathy Discharge Disposition: Home Discharge Instruct/Medications Diet: Regular, Cardiac 2g Na,low cholest Activity: No Restrictions, As Tolerated Discharge Statement: "Patient was advised to return to the ER or call 911 if any headaches, dizziness, shortness of breath, chest pain, abdominal pain, bleeding, fevers, or worsening of medical condition. Patient was counseled about treatment plan, medications, possible side effects, patientverbalized understanding. All questions were answered to the best of my ability. This discharge took greater then 30 minutes in planning, reviewing documentation, counseling the patient, and discussing with other team members." ASSESSMENT ASSESSMENT Assessment Chest pain, ACS ruled out Hypothyroid-TSH 0.09- current dose thyroid medicine may be too high Start synthroid 150 mcg daily- repeat TSH in 1 month DAYA SAMUELS NP Nov 04, 2024 10:16
[2024-11-04 11:33] VITALS: BP 133/78; PULSE 71; RESP 16; TEMP 98; O2SAT 98
[2024-11-04 13:20] VITALS: BP 127/71; PULSE 76; RESP 16; TEMP 98.6; O2SAT 99
== END 2024-11-04 13:40 | disposition home or self-care (01) | DRG 198 ==
LOC: ER 09:55 → OVERFLOW 15:16 → TELE-EAST 11-03 14:15
PROVIDERS: ADMIT Nurse Practitioner; ATTEND Nurse Practitioner
DX: I20.0 Unstable angina (principal); N13.30 Unspecified hydronephrosis; E11.40 Type 2 diabetes mellitus with diabetic neuropathy, unspecified; E03.9 Hypothyroidism, unspecified; I10 Essential (primary) hypertension; I16.0 Hypertensive urgency; E05.90 Thyrotoxicosis, unspecified without thyrotoxic crisis or storm; N20.0 Calculus of kidney; E78.00 Pure hypercholesterolemia, unspecified; M54.6 Pain in thoracic spine; R79.89 Other specified abnormal findings of blood chemistry; Z86.718 Personal history of other venous thrombosis and embolism; Z79.82 Long term (current) use of aspirin
CPT/HCPCS: 36415; 71275; 74176; 80053; 80061; 81001; 82306; 82550; 82607; 82962; 83036; 83690; 83880; 84443; 84484; 85025; 85379; 85610; 85730; 93005; 93306; G0378; J1815; J2405